=== PATIENT | female | born 1940 | race Hispanic/Latino ===

== ENCOUNTER 2017-09-20 05:58 | Day surgery (SDC) | payer MEDICARE, MEDICAID ==
[2017-09-19 13:28] VITALS: BMI 35.1
[2017-09-20 06:44] LABS: PTT 36.8 SEC (22.9-36.1); Prothrombin Time 14.8 SEC (12.0-14.7)
[2017-09-20 06:53] LABS: #Eosinphils 0.2 thou/uL (0.0-0.7); #Lymphocytes 1.2 thou/uL (1.20-3.40); #Monocytes 0.9 thou/uL (0.11-0.59); #Neutrophils 7.7 thou/uL (1.40-6.50); %Basophils 0.1 % (0.0-1.0); %Eosinophils 2.2 % (0.0-10.0); %Lymphocytes 11.8 % (21.0-51.0); %Monocytes 8.8 % (0.0-10.0); Hematocrit 29.3 % (36.0-47.0); Hypochromia SLIGHT = 6-15 cells (100X) (0-5/hpf); Mean Platelet Volume 6.9 fL (7.4-10.4); Microcytosis MODERATE=15-30 cells (100X) (0-5/hpf); Ovalocytes SLIGHT = 2-5 cells (100X) (0-1/hpf); Red Blood Cell (RBC) Count 3.99 mill/uL (4.20-5.40)
[2017-09-20 07:07] LABS: ALT (SGPT) 10 U/L (8-55); AST (SGOT) 9 U/L (5-34); Alkaline Phosphatase 94 U/L (40-150); Anion Gap 12 mmol/L (10-20); BUN (Urea Nitrogen) 7 mg/dL (9.8-20.1); Bilirubin, Total 0.4 mg/dL (0.2-1.2); Calc. Creatinine Clearance 87 mL/min (70-130); Carbon Dioxide 27 mmol/L (23-31); Chloride 101 mmol/L (98-107); Cholesterol 101 mg/dl (< 200 Desired); Estimated GFR-MDRD 78; Globulin 4.1 g/dL (2.4-3.5); LDL Cholesterol, Calculated 58 mg/dL; Protein, Total 7.1 g/dL (6.0-8.3)
[2017-09-20] MEDS ORDERED: Heparin 1000 UNIT/NS 500ML(OR) 500 ML ONE ×3 (07:33→08:38)
[2017-09-20] MEDS ORDERED: hydrALAZINE 20 MG/ML VIAL ONE (08:38)
[2017-09-20] MEDS ORDERED: Heparin 10,000 UNITS/1 ML VIAL ONE (09:18)
[2017-09-20] MEDS ORDERED: Protamine Sulfate 50 MG/5 ML VIAL ONE (09:21)
[2017-09-20] MEDS ORDERED: Iopamidol 370 76% 100 ML VIAL ONE (14:23)
--- NOTE | 2017-09-20 14:30 | CON ---
DATE OF CONSULTATION: 09/20/2017 HISTORY OF PRESENT ILLNESS: Ms. Nagy is a 77-year-old woman, who was brought in for elective cardi ac catheterization. She has been diagnosed with aortic stenosis with a valve area of 0.76. She was brought in for catheterization for coronary evaluation prior to aortic valve replacement. The patient states that she has no chest pain or shortness of breath at home. She performs all activ ities at home that she needs to do including cutting her grass. She has no cough. She has no hemopt ysis. She has had no rhythm disturbances. Currently, she is resting comfortably in the post-cath ar ea with no complaints. Cardiac catheterization reveals a severe LAD and circumflex stenosis with a bypassable LAD target and a bypassable OM target. PAST MEDICAL HISTORY: 1. Coronary artery disease. 2. Aortic stenosis. 3. Diabetes mellitus. 4. Hypertension. 5. Dyslipidemia. PAST SURGICAL HISTORY: None. CURRENT MEDICATIONS: 1. Aspirin 81 mg every day. 2. Tramadol 50 mg p.o. p.r.n. 3. Lyrica 50 mg every daily. 4. Amlodipine 10 mg every daily. 5. Glipizide 10 mg b.i.d. 6. Metformin 1000 mg b.i.d. 7. Coreg 12.5 mg b.i.d. 8. Digoxin 0.125 mg every day. 9. Actonel 35 mg. 10. Sulindac 150 mg daily. ALLERGIES: None. SOCIAL HISTORY: She does not use tobacco or alcohol. Her daughters are present for our discussion. REVIEW OF SYSTEMS: Ten-point review of systems is performed and is negative except as above. PHYSICAL EXAMINATION: GENERAL: Well-developed, well-nourished woman, in no acute distress. VITAL SIGNS: Heart rate is 100 and blood pressure is 110/72. HEENT: Sclerae nonicteric. Pupils equal and round bilaterally. NECK: Supple. No carotid bruits. CHEST: Clear to auscultation bilaterally. HEART: Rhythm is regular. She has a severe aortic stenosis murmur heard throughout her precordium. ABDOMEN: Soft and nontender. There are no masses. EXTREMITIES: No edema. VASCULAR: She has palpable carotid, radial, femoral, and dorsalis pedis pulses bilaterally. VENOUS: There are no venous varicosities or venous stasis changes. ASSESSMENT AND PLAN: Severe aortic stenosis with a valve area of 0.76 on echocardiogram and 0.87 on ventriculogram. She also has 2-vessel coronary artery disease. I have discussed coronary artery byp ass grafting utilizing left internal mammary artery to left anterior descending and saphenous vein gr aft to obtuse marginal along with aortic valve replacement utilizing a bioprosthetic valve. She is a greeable to proceed. Risks, benefits, and options have been outlined. We will bring her back in on Tuesday for surgical intervention.
[2017-09-20] MEDS ORDERED: Insulin Regular 300 UNITS/3 ML VIAL ONE (16:49)
[2017-09-20] MEDS ORDERED: Insulin Regular 300 UNITS/3 ML VIAL SC PRN (17:03)
[2017-09-20] MEDS ORDERED: Dextrose 5% in Water 1,000 ML IV PRN (17:03)
[2017-09-20] MEDS ORDERED: Dextrose 50% Abboject 50 ML SYRINGE IVP PRN (17:03)
--- NOTE | 2017-09-20 19:34 | RAD ---
EXAM: ONE VIEW CHEST 09/20/17 HISTORY: Preoperative exam. COMPARISON: None. FINDINGS: Normal cardiac silhouette. The pulmonary vessels are within normal limits. The lung volumes are dimin ished. Patchy interstitial opacities which are presumed to be chronic change. Right lower lobe atelec tasis is suspected. No significant pleural effusion. No pneumothorax. IMPRESSION: 1. Diminished lung volumes. 2. Chronic changes. 3. Right lower lobe atelectasis. POS: [facility]
== END 2017-09-20 18:19 | disposition home or self-care (01) ==
LOC: CCL 05:58
PROVIDERS: ATTEND Internal Medicine Cardiovascular Disease
DX: I35.0 Nonrheumatic aortic (valve) stenosis (principal); E11.9 Type 2 diabetes mellitus without complications; I25.10 Atherosclerotic heart disease of native coronary artery without angina pectoris; I10 Essential (primary) hypertension; E78.5 Hyperlipidemia, unspecified; Z79.82 Long term (current) use of aspirin; Z79.84 Long term (current) use of oral hypoglycemic drugs; Z79.899 Other long term (current) drug therapy
CPT/HCPCS: 71010; 80053; 80061; 82810; 82962; 85025; 85347 ×2; 85610; 85730; 93460; 93561; 93798; C1769; 36415; 36416; J0360; J1644; J1815; J2720

== ENCOUNTER 2017-09-26 13:05 | Outpatient (CLI) | payer MEDICARE, MEDICAID | END 2017-09-26 13:06 | disposition home or self-care (01) | LOC: LABBT 13:05 | PROVIDERS: ATTEND Thoracic Surgery (Cardiothoracic Vascular Surgery) | DX: Z01.818 Encounter for other preprocedural examination (principal); I35.0 Nonrheumatic aortic (valve) stenosis | CPT/HCPCS: 86850; 86900; 86901 ==

== ENCOUNTER 2017-09-26 13:15 | Inpatient (IN) | payer MEDICARE, MEDICAID ==
[2017-09-27] MEDS ORDERED: Glycopyrrolate 0.2 MG/ML 5 ML SYRINGE ONE (07:09)
[2017-09-27] MEDS ORDERED: Heparin 10,000 UNITS/1 ML VIAL 30,000 UNITS in Sodium Chloride 0.9% 1,000 ML FS SCH (07:15)
[2017-09-27] MEDS ORDERED: CEFAZOLIN/Water 2 GM/20 ML SYRINGE ONE (07:44)
[2017-09-27] MEDS ORDERED: Midazolam HCl 2 mg/2 ml Vial ONE (08:24)
[2017-09-27] MEDS ORDERED: Fentanyl 250 MCG/5 ML VIAL ONE (08:58)
[2017-09-27] MEDS ORDERED: Vecuronium 10 MG VIAL ONE ×2 (08:59→15:59)
[2017-09-27] MEDS ORDERED: Dexmedetomidine 200 MCG/2 ML VIAL ONE (08:59)
[2017-09-27] MEDS ORDERED: Midazolam HCl 5 mg/5 ml Vial ONE (08:59)
[2017-09-27] MEDS ORDERED: Norepinephrine 8 MG/0.9% NS 250 ML ONE (09:01)
[2017-09-27] MEDS ORDERED: Insulin Regular 300 UNITS/3 ML VIAL ONE (09:50)
--- NOTE | 2017-09-27 13:27 | OP ---
DATE OF OPERATION: 09/27/2017 PREOPERATIVE DIAGNOSES: Aortic stenosis/coronary artery disease/diabetes mellitus/hypertension /hyperlipidemia. POSTOPERATIVE DIAGNOSES: Aortic stenosis/coronary artery disease/diabetes mellitus/hypertension /hyperlipidemia. PROCEDURE: Coronary artery bypass grafting x2 -- 1. Left internal mammary artery to 2.5 mm LAD -- good conduit and target. 2. Reversed saphenous vein to 2.5 mm OM1 -- good conduit and target. Aortic valve replacement with #23 Magna bioprosthetic valve. SURGEON: Dr. George Bernardo and Dr. Indra Sarmiento. ANESTHESIA: General endotracheal -- Dr. Mack Enciso. PUMP TIME: 83 minutes. CROSS-CLAMP TIME: 58 minutes. LOW CORE TEMPERATURE: 32 degrees Celsius. CONTROL AND RECOVERY COMBAT RESCUE: Alisia Yusuf. DRAINS: 24-[place] chest tubes x3. DRIPS: None. TRANSFUSIONS: Two units packed red blood cells for anemia on pump. PROCEDURE IN DETAIL: After consent was obtained, the patient was brought to the operating room and placed in the supine position on the operating room table. Appropriate anesthetic monitor was placed and general endotracheal anesthesia induced. Chest, abdomen, and legs were prepped and draped in usual sterile fashion. Greater saphenous vein was harvested through skip incisions on the left thigh. Wounds were irrigated and closed in layers. Median sternotomy was performed. Left internal mammary artery was harvested as a pedicle graft. The patient was systemically heparinized. Distal pedicle was divided and infused with papaverine. Thymic fat and pericardium were divided with electrocautery. Pericardial stay sutures were placed. Aortic and atrial cannulation was performed. After adequate heparinization, retrograde prime was performed. The patient was placed on cardiopulmonary bypass. Distal targets were marked. Left ventricular sump drain was placed to the right superior pulmonary vein. Aortic cross-clamp was applied and antegrade sanguinous cardioplegic arrest obtained. One liter of antegrade cold [place] cardioplegia was given. Topical cold solution was used. Reversed saphenous vein was anastomosed to the OM in end-to-side fashion with running 7-0 Prolene suture. Anastomosis was tested and was hemostatic. Mammary artery was brought through a window in the pericardium and anastomosed to the LAD in end-to-side fashion with running 7-0 Prolene suture. On release of the mammary clamp, there was good hooding in the anastomosis and good distal flow. The mammary was reclamped. The pedicle was secured with interrupted 6-0 Prolene suture. CO2 was infused in the pericardial well throughout the open aortic portion of the procedure. Transverse aortotomy was performed and it was hockey stick down toward the noncoronary cusp. 4-0 Prolene aortic stay sutures were placed. Aortic valve was inspected. It was a 3-leaflet valve that was heavily calcified at the annular hinge points. Leaflets were debrided and valve annulus decalcified. 2-0 Ethibond pledgeted sutures were placed in each commissure. Valve was measured and it was a 23 Magna valve. The valve was then brought into the operative field and washed. Pledgetted 2-0 Ethibond sutures placed around the annulus. Sutures were then passed through the sewing ring of the valve and valve was seated. Core knots were used to secure the valve in place. The valve seated nicely. Aortotomy was then closed with pledgetted running dual layer 4-0 Prolene suture. Prior to completion of the suture line, ventilation was performed and de-airing maneuvers were performed. Suture line was then tied. The aortic cross-clamp was removed with the patient in Trendelenburg position. BioGlue was placed on the aortic suture line. Partial occluding clamp was removed. Saphenous vein was anastomosed to the aorta with running 6-0 Prolene suture. Partial occluding clamp was removed and graft deaired. After adequate deairing via PATRICIA, the left ventricular sump drain was removed and its pursestring sutures secured. The patient was warmed and weaned from cardiopulmonary bypass. Ventricular pacing wires were placed, but never used. After resumption of sinus rhythm, good hemodynamics, and the temperature greater than 36.5, bypass was discontinued. Transfusions were given. A 24-[place] chest tubes x3 were placed in the mediastinum. Vancomycin paste was placed on the sternal edges. After decannulation and protamine administration had been performed, hemostasis was ensured. Sternum was closed with #5 wire. Sternum was treated with platelet-rich plasma and wires twisted. Wounds were irrigated, treated with platelet-poor plasma and closed in multiple layers. The patient tolerated the procedure well, and was transferred to the intensive care unit in stable, but critical condition. [facility]
[2017-09-27] MEDS ORDERED: Bisacodyl 5 MG TAB PO PRN (13:45)
[2017-09-27] MEDS ORDERED: Bisacodyl 10 MG SUPP PR PRN (13:45)
[2017-09-27] MEDS ORDERED: Nitroglycerin 50 MG/250 ML BOT 250 ML IVPB PRN (13:45)
[2017-09-27] MEDS ORDERED: Acetaminophen 325 MG TAB PO PRN (13:45)
[2017-09-27] MEDS ORDERED: Post-Op Insulin Drip Protocol IVPB ONE (13:45)
[2017-09-27] MEDS ORDERED: D5 1/2 NS w/20 mEq KCL 1,000 ML IV SCH (13:45)
[2017-09-27] MEDS ORDERED: Hetastarch 6% 500 ML 500 ML IVPB PRN (13:45)
[2017-09-27] MEDS ORDERED: Guaifenesin DM 100-10/5 ML UDCUP PO PRN (13:45)
[2017-09-27] MEDS ORDERED: Norepinephrine 8 MG/0.9% NS 250 ML IVPB PRN (13:45)
[2017-09-27] MEDS ORDERED: Mag-Al 1200 mg/1200 mg/30 ML UDCUP PO PRN (13:45)
[2017-09-27] MEDS ORDERED: Fentanyl 100 MCG/2 ML VIAL SLOW IVP PRN ×2 (13:45)
[2017-09-27] MEDS ORDERED: Ondansetron HCl/PF 4 MG/2 ML Vial IVP PRN (13:45)
[2017-09-27] MEDS ORDERED: Nitroglycerin 50 MG/250 ML BOT 250 ML ONE (13:51)
[2017-09-27 13:53] LABS: #Eosinphils 0.3 thou/uL (0.0-0.7); #Lymphocytes 1.6 thou/uL (1.20-3.40); #Monocytes 1.2 thou/uL (0.11-0.59); #Neutrophils 14.5 thou/uL (1.40-6.50); %Eosinophils 1.5 % (0.0-10.0); %Monocytes 6.8 % (0.0-10.0); Hematocrit 30.8 % (36.0-47.0); Mean Platelet Volume 7.3 fL (7.4-10.4); Red Blood Cell (RBC) Count 3.91 mill/uL (4.20-5.40); White Blood Cell (WBC) Count 17.5 thou/uL (4.8-10.8)
[2017-09-27] MEDS ORDERED: Dextrose 50% Abboject 50 ML SYRINGE SLOW IVP PRN (13:54)
[2017-09-27] MEDS ORDERED: Dextrose 5% in Water 1,000 ML IV PRN (13:54)
[2017-09-27 13:57] LABS: Mechanical Tidal Volume 500 ml; Mode SIMV; Pressure Support 10 cmH2O; Sodium 141 mmol/L (135-148); Vent YES
[2017-09-27 14:03] LABS: PTT 36.4 SEC (22.9-36.1); Prothrombin Time 16.6 SEC (12.0-14.7)
[2017-09-27] MEDS ORDERED: Morphine 2 MG/ML SYRINGE SLOW IVP PRN (14:03)
--- NOTE | 2017-09-27 14:06 | RAD ---
SUPINE PORTABLE CHEST ONE VIEW: History: 77-year-old female status post coronary artery bypass graft. FINDINGS: There is considerable rotation to the left. Endotracheal tube and right central line and chest tubes are in place. There is some patchy bilateral vascular congestion with some minimal alveolar parenchy mal changes in the right upper lobe and some pleural and parenchymal opacity changes in both bases, w orse on the left, evidence for post-operative change. Aortic valve replacement changes. IMPRESSION: Recent post underlying sternotomy and aortic valve replacement changes with some bilateral vascular c ongestion and some minimal interstitial and alveolar opacity changes and small pleural effusions bila terally, probably recent post-operative change. No pneumothorax. Continued short term follow. Endotra cheal tube tip is approximately 1 cm above the level of the yaritza. No pneumothorax. Continued short term follow up. POS: [facility]
[2017-09-27 14:14] LABS: Anion Gap 5 mmol/L (10-20); BUN (Urea Nitrogen) 7 mg/dL (9.8-20.1); Calc. Creatinine Clearance 108 mL/min (70-130); Calcium 9.6 mg/dL (7.8-10.44); Carbon Dioxide 27 mmol/L (23-31); Chloride 111 mmol/L (98-107); Estimated GFR-MDRD Greater than 90
[2017-09-27] MEDS: hydrALAZINE 20 MG/ML VIAL SLOW IVP PRN (15:10)
[2017-09-27] MEDS ORDERED: Lidocaine 1% PF 5 ML VIAL ONE (15:59)
[2017-09-27] MEDS ORDERED: Heparin 30,000 units/30 ml VIAL ONE (15:59)
[2017-09-27] MEDS ORDERED: Aminocaproic Acid 5 GM/20 ML VIAL ONE (15:59)
[2017-09-27] MEDS ORDERED: Propofol 200 MG/20 ML VIAL ONE (15:59)
[2017-09-27] MEDS ORDERED: Protamine Sulfate 250 MG/25 ML VIAL ONE (15:59)
[2017-09-27] MEDS: CEFAZOLIN/Water 2 GM/20 ML SYRINGE SLOW IVP SCH (16:10)
[2017-09-27 16:21] LABS: Oxyhemoglobin 93.1 % (94.0-97.0); Sodium 141 mmol/L (135-148)
[2017-09-27] MEDS: Ketorolac Tromethamine 30 MG/ML VIAL IVP SCH ×2 (16:39→23:45)
[2017-09-27 16:41] LABS: Pressure Support 10 cmH2O; Spontaneous Rate 21 min; Vent YES
[2017-09-27] MEDS: HYDROcodone/Acetaminophen 5/325 mg Tablet PO PRN ×2 (16:41→21:39)
[2017-09-27 16:42] LABS: Mode CPAP/PSV
[2017-09-27 17:15] VITALS: BMI 35.9
[2017-09-27] MEDS: Potassium Chloride 20 MEQ/100 ML PREMIX BAG IVPB PRN (17:21)
[2017-09-27 19:09] LABS: Hematocrit 30.5 % (36.0-47.0)
[2017-09-27] MEDS: Vancomycin HCl 1 GM in Premix Bag 1 BAG IVPB SCH (20:12)
[2017-09-27] MEDS ORDERED: Famotidine/PF 20 mg/2ml Vial SLOW IVP SCH (21:00)
[2017-09-28] MEDS: CEFAZOLIN/Water 2 GM/20 ML SYRINGE SLOW IVP SCH ×2 (00:59→08:31)
[2017-09-28] MEDS: HYDROcodone/Acetaminophen 5/325 mg Tablet PO PRN ×5 (03:38→22:19)
[2017-09-28] MEDS: hydrALAZINE 20 MG/ML VIAL SLOW IVP PRN (04:41)
[2017-09-28 04:55] LABS: #Lymphocytes 1.5 thou/uL (1.20-3.40); #Monocytes 1.4 thou/uL (0.11-0.59); #Neutrophils 11.4 thou/uL (1.40-6.50); %Basophils 0.1 % (0.0-1.0); %Eosinophils 0.3 % (0.0-10.0); %Lymphocytes 10.1 % (21.0-51.0); %Monocytes 9.7 % (0.0-10.0); Hematocrit 30.8 % (36.0-47.0); Mean Platelet Volume 7.6 fL (7.4-10.4); Red Blood Cell (RBC) Count 3.99 mill/uL (4.20-5.40); White Blood Cell (WBC) Count 14.3 thou/uL (4.8-10.8)
[2017-09-28 05:27] LABS: Anion Gap 10 mmol/L (10-20); BUN (Urea Nitrogen) 9 mg/dL (9.8-20.1); Calc. Creatinine Clearance 98 mL/min (70-130); Calcium 9.7 mg/dL (7.8-10.44); Carbon Dioxide 24 mmol/L (23-31); Chloride 107 mmol/L (98-107); Estimated GFR-MDRD 90
[2017-09-28] MEDS: Ketorolac Tromethamine 30 MG/ML VIAL IVP SCH ×3 (06:00→17:32)
[2017-09-28] MEDS ORDERED: Furosemide 20 MG/2 ML VIAL SLOW IVP SCH (07:45)
[2017-09-28] MEDS: Vancomycin HCl 1 GM in Premix Bag 1 BAG IVPB SCH (08:31)
[2017-09-28] MEDS: Aspirin 325 MG TAB PO SCH (08:32)
[2017-09-28] MEDS: Famotidine 20 MG TAB PO SCH ×2 (08:32→20:35)
[2017-09-28] MEDS ORDERED: Non-Formulary Item 1 EACH (Metformin Hcl [Metformin Hcl] 1,000 MG) PO SCH (09:00)
[2017-09-28] MEDS ORDERED: Non-Formulary Item 1 EACH (Carvedilol [Carvedilol] 12.5 MG) PO SCH (09:00)
[2017-09-28] MEDS ORDERED: INSULIN ASPART 5 UNIT SQ SCH (09:00)
[2017-09-28] MEDS: Amlodipine 10 MG TAB PO SCH (09:03)
[2017-09-28] MEDS: Carvedilol 6.25 MG TAB PO SCH (09:04)
[2017-09-28] MEDS: Digoxin 0.125 MG TAB PO SCH (09:05)
[2017-09-28] MEDS: HumaLOG 300 UNITS/3 ML VIAL SC SCH ×3 (09:05→17:31)
[2017-09-28] MEDS: metFORMIN 500 MG TAB PO SCH ×2 (09:06→20:35)
--- NOTE | 2017-09-28 09:06 | RAD ---
SINGLE VIEW OF THE CHEST: Comparison: 09-27-17 History: Status post open heart surgery. FINDINGS: Single view of the chest shows an enlarged but stable cardiomediastinal silhouette. The patient is st atus post sternotomy. The endotracheal tube has been removed. The mediastinal drain and chest tubes a re unchanged in position. The central venous catheter is unchanged in position. There appear to be sm all bilateral pleural effusions. IMPRESSION: 1. Cardiomegaly. 2. Small bilateral pleural effusions. POS: [facility]
[2017-09-28] MEDS: Potassium Chloride 20 MEQ/100 ML PREMIX BAG IVPB PRN (09:07)
--- NOTE | 2017-09-28 11:11 | PDOC.CTH ---
<Ellen Morin - Last Filed: 09/28/17 11:08> Cardiology Progress Note - Subjective The pt seen and examined. No overnight events. No cardiac complaints. She has been up to chair today. - Objective Vital Signs Temp Pulse BP Pulse Ox 09/28/17 09:05 103 H 09/28/17 09:04 131/58 L 09/28/17 09:03 103 H 131/58 L 09/28/17 08:00 98.6 F 09/28/17 04:41 101 H 142/64 H 09/28/17 04:17 92 L 09/28/17 00:00 99.7 F H Admit Weight 182 lb 15.739 oz Weight 188 lb 7.924 oz 09/27/17 09/28/17 09/29/17 06:59 06:59 06:59 Intake Total 1128.4 695 Output Total 1304 270 Balance -175.6 425 - Physical Examination General/Neuro: alert & oriented x3 Neck: no JVD present Lungs: CTA (diminished at bases) Heart: RRR Abdomen: soft, other: Extremities: other: (No edemas; MSI AVTAR) - Telemetry Telemetry Rhythm: SR 80s - Labs Result Diagrams: 09/28/17 04:17 09/28/17 04:17 - Assessment/Plan 1. CAD with S/p CABG x2, MEDRANO-LAD and reversed saph-OM1 on 09/27/17 - Stable; on ASA and BBlocker, cont. monitor on tele 2. Severe with s/p AVR with #23 Magna Bioprosthetic valve on 09/27/17 - cont. monitor 3. HTN - stable with current medication 4. DM type 2 - on ACHS BG check with Insulin SS and PO med 5. hyperlipidemia - start Lipitor 10mg daily MAR reviewed Review of Systems - Review of Systems Constitutional: reports: no symptoms reported EENTM: reports: no symptoms reported Respiratory: reports: no symptoms reported Cardiac (ROS): reports: no symptoms reported ABD/GI: reports: no symptoms reported : reports: no symptoms reported Musculoskeletal: reports: no symptoms reported Skin: reports: no symptoms reported <Marty Avila - Last Filed: 09/28/17 17:51> Cardiology Progress Note - Objective Vital Signs Temp Pulse Resp BP Pulse Ox 09/28/17 16:00 98.3 F 09/28/17 13:24 93 L 09/28/17 12:00 97.7 F 97 09/28/17 09:05 103 H 09/28/17 09:04 131/58 L 09/28/17 09:03 103 H 131/58 L 09/28/17 08:00 98.6 F 103 H 24 H 95 Admit Weight 182 lb 15.739 oz Weight 188 lb 7.924 oz 09/27/17 09/28/17 09/29/17 06:59 06:59 06:59 Intake Total 1128.4 1264 Output Total 1304 270 Balance -175.6 994 - Labs Result Diagrams: 09/28/17 04:17 09/28/17 04:17 - Assessment/Plan pt. seen and eval. by me. I agree with the A/P by rthe FREIGHT BRAKE OPERATOR. She is doing very well postop day 1. Sitting on the side of the bed.Chest clear, RRR.
[2017-09-28] MEDS ORDERED: HumaLOG 300 UNITS/3 ML VIAL SC SCH (11:30)
[2017-09-28] MEDS: Insulin Regular 300 UNITS/3 ML VIAL SC PRN ×3 (11:37→21:16)
[2017-09-28] MEDS: Atorvastatin Calcium 10 MG TAB PO SCH (20:35)
[2017-09-28] MEDS: Pregabalin 50 MG CAP PO SCH (20:35)
[2017-09-29] MEDS: Ketorolac Tromethamine 30 MG/ML VIAL IVP SCH ×4 (05:30→17:17)
[2017-09-29 05:46] LABS: #Eosinphils 0.2 thou/uL (0.0-0.7); #Lymphocytes 1.5 thou/uL (1.20-3.40); #Monocytes 1.3 thou/uL (0.11-0.59); #Neutrophils 12.5 thou/uL (1.40-6.50); %Basophils 0.1 % (0.0-1.0); %Eosinophils 1.1 % (0.0-10.0); %Lymphocytes 9.8 % (21.0-51.0); %Monocytes 8.6 % (0.0-10.0); Hematocrit 30.2 % (36.0-47.0); Mean Platelet Volume 7.9 fL (7.4-10.4); Red Blood Cell (RBC) Count 3.88 mill/uL (4.20-5.40); White Blood Cell (WBC) Count 15.5 thou/uL (4.8-10.8)
[2017-09-29 06:00] LABS: Anion Gap 9 mmol/L (10-20); BUN (Urea Nitrogen) 19 mg/dL (9.8-20.1); Calc. Creatinine Clearance 82 mL/min (70-130); Calcium 9.7 mg/dL (7.8-10.44); Carbon Dioxide 25 mmol/L (23-31); Chloride 104 mmol/L (98-107); Estimated GFR-MDRD 73
[2017-09-29] MEDS: Insulin Regular 300 UNITS/3 ML VIAL SC PRN ×2 (06:49→12:18)
[2017-09-29] MEDS ORDERED: Guaifenesin DM 100-10/5 ML UDCUP PO PRN (06:53)
[2017-09-29] MEDS ORDERED: Nitroglycerin 0.4 MG TAB 1 EACH SL PRN (06:53)
[2017-09-29] MEDS ORDERED: Mag-Al 1200 mg/1200 mg/30 ML UDCUP PO PRN (06:53)
[2017-09-29] MEDS ORDERED: Bisacodyl 5 MG TAB PO PRN (06:53)
[2017-09-29] MEDS ORDERED: Bisacodyl 10 MG SUPP PR PRN (06:53)
[2017-09-29] MEDS ORDERED: Zolpidem Tartrate 5 MG TAB PO PRN (06:53)
[2017-09-29] MEDS ORDERED: Mineral Oil ENEMA PR PRN (06:53)
[2017-09-29] MEDS ORDERED: Milk Of Magnesia 30 ML UDCUP PO PRN (06:53)
[2017-09-29] MEDS ORDERED: Artificial Tears 18 DROP/0.9 ML EA EYE PRN (06:53)
[2017-09-29] MEDS ORDERED: diphenhydrAMINE 25 MG CAP PO PRN (06:53)
[2017-09-29] MEDS: HumaLOG 300 UNITS/3 ML VIAL SC SCH ×3 (07:28→17:18)
[2017-09-29] MEDS: metFORMIN 500 MG TAB PO SCH ×2 (07:59→20:25)
[2017-09-29] MEDS: Famotidine 20 MG TAB PO SCH ×2 (08:00→20:25)
[2017-09-29] MEDS: Digoxin 0.125 MG TAB PO SCH (08:03)
[2017-09-29] MEDS: Carvedilol 6.25 MG TAB PO SCH (08:03)
[2017-09-29] MEDS: Aspirin 325 MG TAB PO SCH (08:04)
[2017-09-29] MEDS: Amlodipine 10 MG TAB PO SCH (08:04)
--- NOTE | 2017-09-29 08:18 | RAD ---
PORTABLE AP CHEST XRAY: DATE: 09/29/17. HISTORY: Post open heart surgery. COMPARISON: 09/28/17. FINDINGS: Right subclavian central venous catheter remains in place and unchanged in position. Postsurgical ch anges related to median sternotomy and cardiac valve replacement are noted. The cardiac silhouette i s magnified by projection. Linear parenchymal changes are seen at each lung base also seen on the pr ior study and do appear mildly improved. Findings may be related to improvement in atelectasis. The re is a suggestion of tiny bilateral pleural effusions. No other interval change. IMPRESSION: Mild improvement in atelectasis at each lung base, but small bilateral pleural effusions persist. No other interval change. POS: [facility]
[2017-09-29] MEDS ORDERED: Furosemide 20 MG TAB PO SCH (09:00)
[2017-09-29] MEDS: HYDROcodone/Acetaminophen 5/325 mg Tablet PO PRN ×2 (10:42→20:25)
--- NOTE | 2017-09-29 10:56 | CON ---
DATE OF SERVICE: 09/29/2017 SERVICE: Pulmonary Medicine. REASON FOR CONSULTATION: ICU patient. HISTORY OF PRESENT ILLNESS: The patient is a very pleasant 77-year-old female with past med ical history significant for coronary artery disease. She presented to the hospital for an elective outpatient coronary artery bypass graft. This was performed on 09/27/2017. Ultimately, she required a coronary bypass graft x2 separate vessels. The postop period was uncomplicated. She has already been weaned off of oxygen. Chest tubes have been removed. She denies any current chest pain, shortn ess of breath, fevers, or chills. She has not required any pain medications since yesterday. She is breathing comfortably and able cough fully. She is actually being transitioned to the floor at some point today as soon as the room becomes available. Otherwise, there have been no specific events th at have occurred. PAST MEDICAL HISTORY: 1. Type 2 diabetes mellitus. 2. Hypertension. 3. Dyslipidemia. 4. Coronary artery disease. 5. Osteoporosis. 6. Peripheral vascular disease. PAST SURGICAL HISTORY: Coronary bypass graft. ALLERGIES: No known drug allergies. MEDICATIONS: List of her inpatient medications was reviewed. No specific updates were made at this time. SOCIAL HISTORY: No history of alcohol, tobacco or illicit drug use. She has no exposure to chemical s, dust, asbestosis, or tuberculosis at this time. FAMILY HISTORY: Noncontributory. REVIEW OF SYSTEMS: General, head, ears, eyes, nose, throat, cardiovascular, respiratory, GI, , mus culoskeletal, neurologic and skin is negative except as mentioned in the HPI. PHYSICAL EXAMINATION: VITAL SIGNS: Afebrile, pulse 96, blood pressure 126/54, respirations 68, saturation 97% on room air. GENERAL: Patient is awake and alert, in no apparent distress. LUNGS: Excellent air entry. Dependent crackles are present. HEART: Normal rate, regular. ABDOMEN: Soft, nontender, nondistended, bowel sounds positive. MUSCULOSKELETAL: No cyanosis or clubbing. There is trace pitting in the bilateral lower extremities . GENITOURINARY: Padgett catheter in place. NEUROLOGIC: Grossly nonfocal. LABORATORY DATA: WBC 15.5, hemoglobin 9.2, platelets 344,000. Basic metabolic profile is otherwise unremarkable. INR 1.3. PH 7.47, pCO2 of 32, pO2 60 on 40% FiO2 at the time. Basic metabolic profil e is completely unremarkable except for sodium of 134, previously normal. IMAGING: Chest x-ray demonstrates improvement in atelectasis in the bibasilar region. Small bilater al pleural effusions are evident. Low lung volumes remained. There is a right subclavian central ve nous catheter in good position and evidence of sternotomy. ASSESSMENT: 1. Acute hypoxic respiratory failure, resolved. 2. Coronary artery disease status post coronary bypass graft x2 vessels, postop day #1. 3. Aortic stenosis, severe, status post aortic valve replacement. PLAN: The patient will remain in the ICU until cleared by surgery. When she goes to the floor, she will have no further requirements for inpatient pulmonary or critical care opinion and I will sign of f. Please call with additional questions or concerns moving forward.
[2017-09-29] MEDS ORDERED: Amiodarone HCl 150 MG, Admixture Fee 1 EACH in Dextrose 5% in Water 100 ML IVPB SCH ×3 (15:30)
[2017-09-29 16:51] LABS: ALT (SGPT) Less than 7 U/L (8-55); AST (SGOT) 13 U/L (5-34); Alkaline Phosphatase 93 U/L (40-150); Bilirubin, Direct 0.2 mg/dL (0.1-0.3); Bilirubin, Total 0.3 mg/dL (0.2-1.2); Magnesium 1.8 mg/dL (1.6-2.6); Protein, Total 6.1 g/dL (6.0-8.3)
--- NOTE | 2017-09-29 17:03 | PDOC.CTH ---
<Ellen Morin - Last Filed: 09/29/17 17:00> Cardiology Progress Note - Objective Vital Signs Temp Pulse Pulse Pulse Resp BP BP 09/29/17 14:12 81 81 131/59 L 09/29/17 12:08 98.6 F 88 17 09/29/17 11:51 90 76 98/55 L 09/29/17 09:00 98.1 F 86 18 09/29/17 08:04 96 126/54 L 09/29/17 08:03 98 126/54 L 09/29/17 08:00 98.3 F 98 24 H 09/29/17 07:11 98.3 F 96 27 H 09/29/17 07:00 98.3 F BP BP BP Pulse Ox Pulse Ox Pulse Ox 09/29/17 14:12 95/51 L 93 L 92 L 09/29/17 12:08 115/59 L 91 L 09/29/17 11:51 106/62 93 L 92 L 09/29/17 09:00 116/60 91 L 09/29/17 08:04 09/29/17 08:03 09/29/17 08:00 126/54 L 94 L 09/29/17 07:11 94 L 09/29/17 07:00 Admit Weight 182 lb 15.739 oz Weight 184 lb 11.958 oz 09/28/17 09/29/17 09/30/17 06:59 06:59 06:59 Intake Total 1128.4 1944 120 Output Total 1304 630 0 Balance -175.6 1314 120 - Labs Result Diagrams: 09/29/17 05:26 09/29/17 05:26 - Assessment/Plan 1. CAD with S/p CABG x2, MEDRANO-LAD and reversed saph-OM1 on 09/27/17 - Stable; on ASA and BBlocker, cont. monitor on tele 2. Post-Op Afib - rate well controlled. 3. Severe with s/p AVR with #23 Magna Bioprosthetic valve on 09/27/17 - cont. monitor 4. HTN - stable with current medication 5. DM type 2 - on ACHS BG check with Insulin SS and PO med 6. hyperlipidemia - start Lipitor 10mg daily MAR reviewed <Marty Avila - Last Filed: 09/29/17 19:00> Cardiology Progress Note - Objective Vital Signs Temp Pulse Pulse Pulse Resp BP BP 09/29/17 16:00 97.7 F 80 18 09/29/17 14:12 81 81 131/59 L 09/29/17 12:08 98.6 F 88 17 09/29/17 11:51 90 76 98/55 L 09/29/17 09:00 98.1 F 86 18 09/29/17 08:04 96 126/54 L 09/29/17 08:03 98 126/54 L 09/29/17 08:00 98.3 F 98 24 H 09/29/17 07:11 98.3 F 96 27 H 09/29/17 07:00 98.3 F BP BP BP Pulse Ox Pulse Ox Pulse Ox 09/29/17 16:00 123/57 L 96 09/29/17 14:12 95/51 L 93 L 92 L 09/29/17 12:08 115/59 L 91 L 09/29/17 11:51 106/62 93 L 92 L 09/29/17 09:00 116/60 91 L 09/29/17 08:04 09/29/17 08:03 09/29/17 08:00 126/54 L 94 L 09/29/17 07:11 94 L 09/29/17 07:00 Admit Weight 182 lb 15.739 oz Weight 184 lb 11.958 oz 09/28/17 09/29/17 09/30/17 06:59 06:59 06:59 Intake Total 1128.4 1944 600 Output Total 1304 630 800 Balance -175.6 1314 -200 - Labs Result Diagrams: 09/29/17 05:26 09/29/17 05:26 - Assessment/Plan Pt. seen and eval. by me. I agree with the A/P by the DORMITORY COUNSELOR. She converted to A- fib.. Will try to manage medically.
[2017-09-29] MEDS: Amiodarone HCl 450 MG in Dextrose 5% in Water 250 ML IVPB SCH ×2 (17:18)
[2017-09-29] MEDS: Pregabalin 50 MG CAP PO SCH (20:23)
[2017-09-29] MEDS: Atorvastatin Calcium 10 MG TAB PO SCH (20:24)
[2017-09-30] MEDS: Ketorolac Tromethamine 30 MG/ML VIAL IVP SCH ×4 (00:17→17:44)
[2017-09-30] MEDS: Amiodarone HCl 450 MG in Dextrose 5% in Water 250 ML IVPB SCH ×2 (07:03)
[2017-09-30] MEDS ORDERED: Metolazone 5 MG TAB PO SCH (08:15)
[2017-09-30] MEDS ORDERED: Furosemide 20 MG TAB PO SCH (08:15)
[2017-09-30] MEDS: Amlodipine 10 MG TAB PO SCH (09:06)
[2017-09-30] MEDS: Aspirin 325 MG TAB PO SCH (09:06)
[2017-09-30] MEDS: metFORMIN 500 MG TAB PO SCH ×2 (09:06→21:24)
[2017-09-30] MEDS: Digoxin 0.125 MG TAB PO SCH (09:06)
[2017-09-30] MEDS: Carvedilol 6.25 MG TAB PO SCH (09:07)
[2017-09-30] MEDS: Famotidine 20 MG TAB PO SCH ×2 (09:07→21:24)
[2017-09-30] MEDS: Furosemide 40 MG TAB PO SCH (09:07)
[2017-09-30] MEDS: HumaLOG 300 UNITS/3 ML VIAL SC SCH ×3 (09:08→17:47)
[2017-09-30 11:26] LABS: Base Excess 0.5 mEq/L (0 (+/- 2.5)); O2 Content (venous) 6.1 VOL% (12.5-17.5); Oxyhemoglobin 97.3 % (94.0-97.0); Sodium 140 mmol/L (135-148); pH (venous) 7.36 (7.35-7.45)
[2017-09-30 11:26] LABS: Oxyhemoglobin 97.4 % (94.0-97.0); Sodium 140 mmol/L (135-148)
[2017-09-30 11:27] LABS: Oxyhemoglobin 96.9 % (94.0-97.0); Sodium 142 mmol/L (135-148)
[2017-09-30 11:27] LABS: Oxyhemoglobin 94.8 % (94.0-97.0); Sodium 141 mmol/L (135-148)
[2017-09-30 11:27] LABS: Oxyhemoglobin 96.7 % (94.0-97.0); Sodium 141 mmol/L (135-148)
[2017-09-30] MEDS: Insulin Regular 300 UNITS/3 ML VIAL SC PRN ×2 (11:31→17:46)
--- NOTE | 2017-09-30 12:26 | PDOC.CTH ---
<MikelEllen - Last Filed: 09/30/17 12:25> Cardiology Progress Note - Subjective The pt seen and examined. No overnight events. No cardiac complaints. She has walked to the yoder today with PTs. - Objective Vital Signs Temp Pulse Resp BP BP Pulse Ox 09/30/17 12:00 97.6 F 77 17 126/61 93 L 09/30/17 09:07 151/69 H 09/30/17 09:06 93 151/69 H 09/30/17 08:00 97.8 F 94 18 150/67 H 94 L 09/30/17 07:31 97.8 F 97 23 H 94 L 09/30/17 06:10 92 L 09/30/17 04:00 97.8 F 97 23 H 132/66 91 L Admit Weight 182 lb 15.739 oz Weight 184 lb 09/29/17 09/30/17 10/01/17 06:59 06:59 06:59 Intake Total 3404 591 1883 Output Total 630 800 400 Balance 1314 -200 750 - Physical Examination General/Neuro: alert & oriented x3 Neck: no JVD present Lungs: CTA (diminished at bases; IS up to 1200) Heart: other: (irregular) Abdomen: soft Extremities: other: (No edemas; MSI PURCHASING ADMINISTRATOR) - Telemetry Telemetry Rhythm: afib with HR 70-80s - Labs Result Diagrams: 09/29/17 05:26 09/29/17 05:26 - Assessment/Plan 1. CAD with S/p CABG x2, MEDRANO-LAD and reversed saph-OM1 on 09/27/17 - Stable; on ASA and BBlocker, cont. monitor on tele 2. Post-Op Afib - rate well controlled with Amiodarone drip; Change to Amiodarone to 400mg BID for 1wk, then 200mg daily; Start Eliquis 5mg BID 3. Severe with s/p AVR with #23 Magna Bioprosthetic valve on 09/27/17 - cont. monitor 4. HTN - stable with current medication 5. DM type 2 - on ACHS BG check with Insulin SS and PO med 6. hyperlipidemia - start Lipitor 10mg daily MAR reviewed Review of Systems - Review of Systems Constitutional: reports: no symptoms reported EENTM: reports: no symptoms reported Respiratory: reports: no symptoms reported Cardiac (ROS): reports: no symptoms reported ABD/GI: reports: no symptoms reported : reports: no symptoms reported Musculoskeletal: reports: no symptoms reported <Marty Avila - Last Filed: 09/30/17 14:39> Cardiology Progress Note - Objective Vital Signs Temp Pulse Pulse Pulse Resp BP BP 09/30/17 13:19 76 77 133/58 L 09/30/17 12:00 97.6 F 77 17 09/30/17 09:07 151/69 H 09/30/17 09:06 93 151/69 H 09/30/17 08:51 85 80 151/69 H 09/30/17 08:00 97.8 F 94 18 09/30/17 07:31 97.8 F 97 23 H 09/30/17 06:10 09/30/17 04:00 97.8 F 97 23 H BP BP Pulse Ox Pulse Ox Pulse Ox 09/30/17 13:19 143/64 H 09/30/17 12:00 126/61 93 L 09/30/17 09:07 09/30/17 09:06 09/30/17 08:51 150/67 H 94 L 96 09/30/17 08:00 150/67 H 94 L 09/30/17 07:31 94 L 09/30/17 06:10 92 L 09/30/17 04:00 132/66 91 L Admit Weight 182 lb 15.739 oz Weight 184 lb 09/29/17 09/30/17 10/01/17 06:59 06:59 06:59 Intake Total 2023 064 7849 Output Total 630 800 400 Balance 1314 -200 870 - Labs Result Diagrams: 09/29/17 05:26 09/29/17 05:26 - Assessment/Plan Pt. seen and eval. by me. I agree with the A/P by the SCHOOL PHOTOGRAPH EDITOR. She remains in A- fib.. Will try to manage medically.She is now on po Amiodarone. HR and BP still on the high side. increase coreg.
[2017-09-30 16:24] LABS: Mode OR ABG; Vent YES
[2017-09-30 16:25] LABS: Mode OR ABG; Vent YES
[2017-09-30 16:25] LABS: Mode OR ABG; Vent YES
[2017-09-30 16:26] LABS: Mode OR ABG; Vent YES
[2017-09-30 16:26] LABS: Mode OR ABG; Vent YES
[2017-09-30] MEDS ORDERED: Carvedilol 6.25 MG TAB PO SCH (17:00)
[2017-09-30] MEDS: Carvedilol 25 MG TAB PO SCH (17:45)
[2017-09-30] MEDS: Apixaban 5 MG TAB PO SCH (21:24)
[2017-09-30] MEDS: Atorvastatin Calcium 10 MG TAB PO SCH (21:24)
[2017-09-30] MEDS: Pregabalin 50 MG CAP PO SCH (21:24)
[2017-09-30] MEDS: HYDROcodone/Acetaminophen 5/325 mg Tablet PO PRN (21:25)
[2017-10-01] MEDS: HYDROcodone/Acetaminophen 5/325 mg Tablet PO PRN ×3 (04:07→20:45)
[2017-10-01] MEDS: HumaLOG 300 UNITS/3 ML VIAL SC SCH ×3 (07:30→18:43)
[2017-10-01] MEDS: Famotidine 20 MG TAB PO SCH ×2 (11:22→20:43)
[2017-10-01] MEDS: Furosemide 40 MG TAB PO SCH (11:22)
[2017-10-01] MEDS: metFORMIN 500 MG TAB PO SCH ×2 (11:22→20:43)
[2017-10-01] MEDS: Carvedilol 25 MG TAB PO SCH ×2 (11:22→18:42)
[2017-10-01] MEDS: Digoxin 0.125 MG TAB PO SCH (11:23)
[2017-10-01] MEDS: Amlodipine 10 MG TAB PO SCH (11:24)
[2017-10-01] MEDS: Aspirin 325 MG TAB PO SCH (11:28)
[2017-10-01] MEDS: Apixaban 5 MG TAB PO SCH ×2 (11:28→20:43)
[2017-10-01] MEDS: Insulin Regular 300 UNITS/3 ML VIAL SC PRN ×2 (11:31→18:43)
[2017-10-01] MEDS: Atorvastatin Calcium 10 MG TAB PO SCH (20:43)
[2017-10-01] MEDS: Pregabalin 50 MG CAP PO SCH (20:44)
[2017-10-02] MEDS: metFORMIN 500 MG TAB PO SCH (08:23)
[2017-10-02] MEDS: Aspirin 325 MG TAB PO SCH (08:23)
[2017-10-02] MEDS: Furosemide 40 MG TAB PO SCH (08:24)
[2017-10-02] MEDS: Carvedilol 25 MG TAB PO SCH (08:25)
[2017-10-02] MEDS: Famotidine 20 MG TAB PO SCH (08:25)
[2017-10-02] MEDS: Apixaban 5 MG TAB PO SCH (08:25)
[2017-10-02] MEDS: Amlodipine 10 MG TAB PO SCH (08:26)
[2017-10-02] MEDS: HumaLOG 300 UNITS/3 ML VIAL SC SCH ×2 (08:26→12:03)
[2017-10-02] MEDS: Digoxin 0.125 MG TAB PO SCH (08:26)
[2017-10-02] MEDS: HYDROcodone/Acetaminophen 5/325 mg Tablet PO PRN (08:26)
[2017-10-02 12:15] VITALS: BP 117/56; TEMP 98.1
--- NOTE | 2017-10-02 15:43 | DIS ---
DATE OF ADMISSION: 09/27/2017 DATE OF DISCHARGE: 10/02/2017 DIAGNOSES: 1. Severe aortic stenosis. 2. Coronary artery disease. 3. Postoperative atrial fibrillation. 4. Hypertension. 5. Dyslipidemia. 6. Insulin-dependent diabetes mellitus. PROCEDURES: 1. Aortic valve replacement with a #23 Magna bioprosthetic valve. 2. Coronary artery bypass grafting x2 - left internal mammary artery to LAD, reversed saphenous vein to OM1. DESCRIPTION OF HOSPITAL STAY: Ms. Nagy was admitted electively for AVR/CABG. She has done well po stoperatively. She has been in atrial fibrillation and has been loaded with amiodarone. She has als o been started on Eliquis. She is being discharged home in good condition to follow up with me in [address] Avila in a month. DISCHARGE MEDICATIONS: 1. Aspirin 81 mg daily. 2. Amiodarone 400 mg b.i.d. for 5 additional days, followed by 200 mg every day thereafter. 3. Eliquis 5 mg b.i.d. 4. Norvasc 10 mg every day. 5. Coreg 12.5 mg every day. 6. Digoxin 0.125 mcg daily. 7. Lipitor 10 mg at bedtime. 8. Glipizide 10 mg every day. 9. Insulin per her home schedule. 10. Metformin 1000 mg b.i.d. 11. Sulindac 150 mg every day. 11. Lyrica 50 mg at bedtime. 12. [place] 5/325 one to two q.6 hour p.r.n. pain. FOLLOWUP: Follow up is with me in [address] Avila in a month.
== END 2017-10-02 11:53 | disposition home or self-care (01) | DRG 219 ==
LOC: SURG A 09-27 06:57 → CCU 09-27 13:29 → 2NO 09-29 08:55
PROVIDERS: ADMIT Thoracic Surgery (Cardiothoracic Vascular Surgery); ATTEND Thoracic Surgery (Cardiothoracic Vascular Surgery)
PROC: 02100Z9 Bypass Coronary Artery, One Artery from Left Internal Mammary, Open Approach (ICD-10-PCS; principal; 2017-09-27)
PROC: 02RF08Z Replacement of Aortic Valve with Zooplastic Tissue, Open Approach (ICD-10-PCS; 2017-09-27)
PROC: 021009W Bypass Coronary Artery, One Artery from Aorta with Autologous Venous Tissue, Open Approach (ICD-10-PCS; 2017-09-27)
PROC: 06BQ0ZZ Excision of Left Saphenous Vein, Open Approach (ICD-10-PCS; 2017-09-27)
PROC: 5A1221Z Performance of Cardiac Output, Continuous (ICD-10-PCS; 2017-09-27)
PROC: 30233N1 Transfusion of Nonautologous Red Blood Cells into Peripheral Vein, Percutaneous Approach (ICD-10-PCS; 2017-09-27)
DX: I35.0 Nonrheumatic aortic (valve) stenosis (principal); J96.01 Acute respiratory failure with hypoxia; I97.89 Other postprocedural complications and disorders of the circulatory system, not elsewhere classified; E78.5 Hyperlipidemia, unspecified; I25.10 Atherosclerotic heart disease of native coronary artery without angina pectoris; E11.9 Type 2 diabetes mellitus without complications; I10 Essential (primary) hypertension; Z79.4 Long term (current) use of insulin
CPT/HCPCS: 36415; 36416; 36430; 71010; 80048; 80076; 82805; 83735; 84443; 85025; 85610; 85730; 86850; 86900; 86901; 88184; 88305; 93005; 93010; 93798; 94002; 94150; J0282; J0360; J1642; J1644; J1815; J1885; J1940; J2001; J2250; J2270; J2704; J2720; J3010; J3370; J3475; J3480; J7050; J7070; P9016; S0017; S0028

== ENCOUNTER 2018-02-07 09:48 | Emergency (ER) | payer MEDICARE, MEDICAID ==
[2018-02-07] MEDS ORDERED: Acetaminophen/Codeine 30-300mg Tablet ONE (11:09)
== END 2018-02-07 13:39 | disposition home or self-care (01) ==
LOC: ERS 09:48
DX: M54.9 Dorsalgia, unspecified (principal); E11.9 Type 2 diabetes mellitus without complications; I10 Essential (primary) hypertension; M25.551 Pain in right hip; R11.0 Nausea; I25.10 Atherosclerotic heart disease of native coronary artery without angina pectoris; Z79.82 Long term (current) use of aspirin; Z79.84 Long term (current) use of oral hypoglycemic drugs; Z79.899 Other long term (current) drug therapy
CPT/HCPCS: 99283

== ENCOUNTER 2018-02-23 16:48 | Inpatient (IN) | payer MEDICARE, MEDICAID ==
--- NOTE | 2018-02-23 18:02 | RAD ---
PORTABLE CHEST: 02/23/18 HISTORY: Patient fell from chair injuring left hip. COMPARISON: A 09/29/17 study. Heart size is within normal limits with postop sternotomy change. Bilateral pulmonary nodules are see n. Very suspicious for metastatic disease and new as compared to the previous exam. The bones are dem ineralized. No lytic bone lesions. IMPRESSION: Bilateral pulmonary nodules highly suspicious for metastatic disease. POS: [facility]
--- NOTE | 2018-02-23 18:04 | RAD ---
LEFT HIP TWO VIEWS: 02/23/18 HISTORY: Fell out of a chair. There is an intertrochanteric fracture of the left hip with a mild coxa vara deformity. The bones are demineralized. There are vascular calcifications. No definite signs that this is a pathologic fractu re given the chest x-ray findings which show pulmonary nodules. IMPRESSION: Intertrochanteric fracture of the left hip. Findings telephoned to Dr. Sosa and discussion of the chest x-ray findings were also made. POS: [facility]
[2018-02-23] MEDS ORDERED: Fentanyl 100 MCG/2 ML VIAL ONE (18:13)
[2018-02-23 18:46] LABS: Bilirubin Negative (Negative); Blood, Urine Negative (Negative); Clarity CLOUDY (Clear); Glucose, Urine (Dipstick) 250 mg/dL (Negative); Leukocyte Moderate (Negative); Nitrite Positive (Negative); Protein, Urine (Dipstick) Negative (Neg-Trace); Specific Gravity, Urine 1.015 (1.002-1.036); Urobilinogen 0.2 mg/dL (0.2-1.0)
[2018-02-23 18:47] LABS: Bacteria/HPF 4+ HPF (None Seen); Hyaline Casts/LPF 0-3 HYALINE CAST LPF (0-3 Hyaline); Pathc Cast-AUWi Flag 0.14 (0-2.49); Squamous Epithelial 0-3 HPF (0-3); WBC/HPF 21-50 HPF (0-3)
[2018-02-23 18:49] LABS: RBC/HPF None Seen HPF (0-3)
[2018-02-23 18:55] LABS: ALT (SGPT) 11 U/L (8-55); AST (SGOT) 10 U/L (5-34); Albumin 2.7 g/dL (3.4-4.8); Alkaline Phosphatase 107 U/L (40-150); Anion Gap 11 mmol/L (10-20); BUN (Urea Nitrogen) 15 mg/dL (9.8-20.1); Bilirubin, Total 0.3 mg/dL (0.2-1.2); Calc. Creatinine Clearance 0 mL/min (70-130); Calcium 10.6 mg/dL (7.8-10.44); Carbon Dioxide 25 mmol/L (23-31); Chloride 100 mmol/L (98-107); Estimated GFR-MDRD 63; Globulin 3.8 g/dL (2.4-3.5); Glucose 357 mg/dL (83-110); Potassium 3.6 mmol/L (3.5-5.1); Protein, Total 6.5 g/dL (6.0-8.3); Sodium 132 mmol/L (136-145)
[2018-02-23 18:55] LABS: #Eosinphils 0.1 thou/uL (0.0-0.7); #Lymphocytes 0.8 thou/uL (1.20-3.40); #Monocytes 0.7 thou/uL (0.11-0.59); #Neutrophils 11.7 thou/uL (1.40-6.50); %Basophils 0.2 % (0.0-1.0); %Eosinophils 0.7 % (0.0-10.0); %Lymphocytes 6.2 % (21.0-51.0); %Monocytes 5.4 % (0.0-10.0); %Neutrophils 87.5 % (42.0-75.0); Anisocytosis SLIGHT = 6-15 cells (100X) (0-5/hpf); Hemoglobin 7.6 g/dL (12.0-16.0); Hypochromia SLIGHT = 6-15 cells (100X) (0-5/hpf); MDiff Complete? YES; Mean Corpuscular HGB CONC 29.4 g/dL (32.0-36.0); Mean Corpuscular Hemoglobin 21.7 pg (27.0-31.0); Mean Corpuscular Volume 73.8 fl (81.0-99.0); Mean Platelet Volume 6.9 fL (7.4-10.4); Microcytosis SLIGHT = 6-15 cells (100X) (0-5/hpf); Ovalocytes SLIGHT = 2-5 cells (100X) (0-1/hpf); PLT Morphology Comment Appears Increased; Platelet Count 613 thou/uL (130-400); Polychromasia SLIGHT = 2-3 cells (100X) (0-2/hpf); RBC Distribution Width 16.1 % (11.5-14.5); Red Blood Cell (RBC) Count 3.49 mill/uL (4.20-5.40); White Blood Cell (WBC) Count 13.4 thou/uL (4.8-10.8)
--- NOTE | 2018-02-23 23:10 | HP ---
DATE OF ADMISSION: 02/23/2018 REQUESTING PHYSICIAN: Bartolo Sosa MD ATTENDING PHYSICIAN: Dr. Clayton. CONSULTATIONS: Orthopedics, Dr. Anderson. HISTORY OF PRESENT ILLNESS: The patient is a 77-year-old woman who was reportedly going to sit down in her recliner when she misjudged the distance and landed on her buttocks. The patient had immediate left-sided hip pain, was brought to the emergency department via ground EMS. She underwen t evaluation and examination was noted to have a left intratrochanteric hip fracture, at which time, we were asked to evaluate the patient for admission and obtain orthopedic consultation. The patient denies shortness of breath, dizziness, or any syncopal-type symptoms prior to her fall. The patient also did not have any loss of consciousness or hit her head. ALLERGIES: None. MEDICATIONS: Eliquis, metformin, atorvastatin, furosemide, Lyrica, amlodipine, and aspirin. PAST MEDICAL HISTORY: Coronary artery disease, diabetes, hypertension. PAST SURGICAL HISTORY: Two-vessel coronary artery bypass graft surgery. SOCIAL HISTORY: Patient lives with her family. She denies drug, tobacco, or alcohol use. FAMILY MEDICAL HISTORY: Diabetes. REVIEW OF SYSTEMS: Ten-point review of systems is negative, unless otherwise stated. PHYSICAL EXAMINATION: VITAL SIGNS: Blood pressure 151/65, heart rate 91, respirations 20, oxygen saturation is 98% on room air, temperature is 98.6. GENERAL: The patient is resting comfortably in bed. She is awake, alert, and oriented x3. [place] coma scale is 15. HEENT: Head is normocephalic, atraumatic. Eyes: Extraocular motion intact. PERRLA bilaterally. E ars are atraumatic without discharge. Nose is atraumatic without discharge. Oropharynx is clear. NECK: Nontender. Trachea is midline. No JVD. CHEST: Clear to auscultation with good inspiratory and expiratory effort. HEART: Regular rate and rhythm. ABDOMEN: Soft, flat, nontender with active bowel sounds. Pelvis is stable with tenderness to palpat ion to the left hip consistent with her fracture. EXTREMITIES: Neurovascularly intact x4. Capillary refill is less than 3 seconds. Pulses are 2+. BACK: By report the back is atraumatic and nontender. LABORATORY FINDINGS: White blood cell count 13.4, hemoglobin 7.6, hematocrit 25.8, platelets 613,000 . Sodium 132, potassium 3.6, chloride 100, CO2 of 25, BUN 15, creatinine 0.87, glucose 357. LFTs ar e unremarkable. Urinalysis 21-50 wbc's, 4+ bacteria, positive for leukocyte esterase and nitrite. RADIOGRAPHIC FINDINGS: Two views of the left hip show an intertrochanteric fracture of the left hip. Portable chest shows bilateral pulmonary nodules, highly suspicious for metastatic disease. ASSESSMENT AND PLAN: 1. Status post ground level fall. 2. Acute left hip fracture. 3. Hyperglycemia. 4. Anemia. 5. Urinary tract infection. 6. Newly found pulmonary nodules suspicious for metastatic disease. Plan will be to admit the patient to the surgical floor. We will obtain clearance from the cardiovas cular surgeon who did her 2-vessel CABG in September, Dr. Bernardo unsure he is okay with the patient hav ing surgery, fluid hydration, and sliding scale insulin type and cross for 2 units of blood and posto peratively we will make plan for these newly discovered pulmonary nodules. Evaluation, examination, laboratory, and radiographic findings were discussed with Dr. Hughes at time of this dictation. The patient was also seen by Dr. Anderson.
[2018-02-24] MEDS ORDERED: Fentanyl 100 MCG/2 ML VIAL ONE ×3 (00:29→17:50)
[2018-02-24] MEDS ORDERED: Morphine 4 MG/ML VIAL SLOW IVP PRN ×3 (01:22→01:58)
[2018-02-24] MEDS ORDERED: Dextrose 50% Abboject 50 ML SYRINGE SLOW IVP PRN (01:22)
[2018-02-24] MEDS ORDERED: Ondansetron HCl/PF 4 MG/2 ML Vial IVP PRN ×2 (01:22→18:31)
[2018-02-24] MEDS ORDERED: Ondansetron ODT 4 MG TAB PO PRN (01:22)
[2018-02-24] MEDS ORDERED: hydrALAZINE 20 MG/ML VIAL SLOW IVP PRN (01:22)
[2018-02-24] MEDS ORDERED: Dextrose 5% in Water 1,000 ML IV PRN (01:22)
[2018-02-24 01:44] VITALS: BMI 29.9
[2018-02-24] MEDS: Ketorolac Tromethamine 30 MG/ML VIAL IVP SCH ×4 (02:18→20:35)
[2018-02-24] MEDS: Acetaminophen 1,000 MG in Premix Bag 1 BAG IVPB SCH ×4 (02:18→20:34)
[2018-02-24] MEDS: Sodium Chloride 0.9% 1,000 ML IV SCH ×3 (02:19→19:51)
[2018-02-24 05:47] LABS: #Basophils 0.1 thou/uL (0.0-0.2); #Eosinphils 0.1 thou/uL (0.0-0.7); #Lymphocytes 1.1 thou/uL (1.20-3.40); #Neutrophils 9.6 thou/uL (1.40-6.50); %Basophils 0.4 % (0.0-1.0); %Eosinophils 0.7 % (0.0-10.0); %Lymphocytes 9.5 % (21.0-51.0); %Monocytes 8.7 % (0.0-10.0); %Neutrophils 80.7 % (42.0-75.0); Hemoglobin 7.3 g/dL (12.0-16.0); Mean Corpuscular HGB CONC 30.7 g/dL (32.0-36.0); Mean Corpuscular Hemoglobin 22.3 pg (27.0-31.0); Mean Corpuscular Volume 72.6 fl (81.0-99.0); Mean Platelet Volume 6.8 fL (7.4-10.4); Platelet Count 569 thou/uL (130-400); RBC Distribution Width 16.3 % (11.5-14.5); Red Blood Cell (RBC) Count 3.29 mill/uL (4.20-5.40); White Blood Cell (WBC) Count 11.9 thou/uL (4.8-10.8)
[2018-02-24 06:31] LABS: Anion Gap 9 mmol/L (10-20); BUN (Urea Nitrogen) 12 mg/dL (9.8-20.1); Calc. Creatinine Clearance 70 mL/min (70-130); Calcium 9.9 mg/dL (7.8-10.44); Carbon Dioxide 27 mmol/L (23-31); Chloride 102 mmol/L (98-107); Estimated GFR-MDRD 72; Glucose 277 mg/dL (83-110); Potassium 3.2 mmol/L (3.5-5.1); Sodium 135 mmol/L (136-145)
[2018-02-24] MEDS ORDERED: Ondansetron HCl/PF 4 MG/2 ML Vial ONE ×2 (10:09→15:58)
[2018-02-24] MEDS ORDERED: PROPOFOL 200 MG/20 ML VIAL ONE (10:09)
[2018-02-24] MEDS ORDERED: PHENYLEPHRINE-NS 100 MCG/ML 10 ML SYRINGE ONE (10:09)
[2018-02-24] MEDS ORDERED: Lidocaine 1% PF 5 ML VIAL ONE (10:09)
[2018-02-24] MEDS: Famotidine 20 MG TAB PO SCH (11:38)
--- NOTE | 2018-02-24 12:41 | PDOC.PN ---
- Subjective Encounter Start Date: 02/24/18 Encounter Start Time: 08:20 Subjective: no sob or chest pain or palp -: was 187lbs in sep 2018, has lost nearly 30lbs -: no bleeding per rectum/vagina - Objective MAR Reviewed: Yes Vital Signs & Weight: Vital Signs (12 hours) Temp Pulse Resp BP Pulse Ox 02/24/18 08:00 98.8 F 83 15 02/24/18 07:00 98.8 F 83 15 147/60 H 02/24/18 04:00 99.0 F 92 18 145/55 H 91 L 02/24/18 02:39 95 143/64 H 02/24/18 01:30 98.9 F 95 18 02/24/18 01:05 98.9 F 99 18 179/71 H 94 L Weight Weight 158 lb 8 oz I&O: 02/23/18 02/24/18 02/25/18 06:59 06:59 06:59 Intake Total 400 Output Total 350 Balance 50 Result Diagrams: 02/24/18 04:31 02/24/18 04:31 Additional Labs: Accuchecks 02/24/18 06:04 POC Glucose 255 H Phys Exam - Physical Examination HEENT: PERRLA, moist MMs pallor+ Neck: no JVD, supple Respiratory: no wheezing, no rales Cardiovascular: RRR, no significant murmur Gastrointestinal: soft, non-tender, positive bowel sounds no rigidity or guarding Musculoskeletal: no edema, pulses present left leg hurts to move, in external rotation+ Neurological: non-focal Psychiatric: normal affect, A&O x 3 Dx/Plan (1) Fracture of femoral neck, left Code(s): S72.002A - FRACTURE OF UNSP PART OF NECK OF LEFT FEMUR, INIT Status: Acute Qualifiers: Encounter type: initial encounter Fracture type: closed Qualified Code(s) : S72.002A - Fracture of unspecified part of neck of left femur, initial encounter for closed fracture (2) CAD (coronary artery disease) Code(s): I25.10 - ATHSCL HEART DISEASE OF [place] CORONARY ARTERY W/O ANG PCTRS Status: Acute Qualifiers: Coronary Disease-Associated Artery/Lesion type: bypass graft [place] vs. transplanted heart: [place] heart Associated angina: without angina Qualified Code(s): I25.810 - Atherosclerosis of coronary artery bypass graft(s) without angina pectoris Comment: done in 09/2018 (3) H/O heart valve replacement with bioprosthetic valve Code(s): Z95.3 - PRESENCE OF XENOGENIC HEART VALVE Status: Acute Comment: avr done 09/2018 (4) Multiple lesions of metastatic malignancy Code(s): C79.9 - SECONDARY MALIGNANT NEOPLASM OF UNSPECIFIED SITE Status: Acute Comment: new diagnosis, unknown primary (5) UTI (urinary tract infection) Status: Acute Qualifiers: Urinary tract infection type: acute cystitis Hematuria presence: without hematuria Qualified Code(s): N30.00 - Acute cystitis without hematuria (6) Iron deficiency anemia Code(s): D50.9 - IRON DEFICIENCY ANEMIA, UNSPECIFIED Status: Chronic (7) DM type 2 (diabetes mellitus, type 2) Status: Chronic Qualifiers: Diabetes mellitus terminal make up operator insulin use: with terminal make up operator use Diabetes mellitus complication status: with unspecified complications Qualified Code(s) : E11.8 - Type 2 diabetes mellitus with unspecified complications; Z79.4 - FPC (current) use of insulin; Z79.4 - FPC (current) use of insulin; Z79.4 - FPC (current) use of insulin; Z79.4 - long term care pharmacist (current) use of insulin (8) Afib Code(s): I48.91 - UNSPECIFIED ATRIAL FIBRILLATION Status: Chronic Qualifiers: Atrial fibrillation type: paroxysmal Qualified Code(s): I48.0 - Paroxysmal atrial fibrillation (9) Hypoalbuminemia Code(s): E88.09 - H DISORDERS OF PLASMA-PROTEIN METABOLISM, NEC Status: Chronic - Plan is cleared for left hip fracture surgery ?bipolar screw fixation -: type of anesthesia per anesthesia service advice -: d/w , needs biopsy, unclear if inguinal node is enough if so can -: be done at bedside. -: poor prognosis given multiple mets and large masses in the abd/pelvic area * . Was very functional prior to arrival, has pain on minimal movement of left LE, hence will need surgery to fix her hip. Will discuss above findings with children and patient shortly and the risks assoc with surgery/anesthesia/wound healing (low alb) May proceed with surgery if family is aware/agree of all the risks involved with surgery. H/H post surgery, transfuse if needed to keep Hb above 7-8g. Bone bx, is aware. Has L2 lesion in the body, for anesthesia to be aware. Review of Systems - Medications/Allergies Allergies/Adverse Reactions: Allergies Allergy/AdvReac Type Severity Reaction Status Date / Time No Known Allergies Allergy Verified 09/26/17 13:32 Medications: Current Medications Albuterol/Ipratropium (Duoneb) 3 ml NEB Q4H PRN PRN Reason: Wheezing Cefazolin Sodium (Ancef) 2 gm SLOW IVP ONCALL-OR [facility] Stop: 02/24/18 20:16 Dextrose/Water (Dextrose 50%) 25 gm SLOW IVP PRN PRN PRN Reason: Hypoglycemia Famotidine (Pepcid) 20 mg PO DAILY [facility] Last Admin: 02/24/18 11:38 Dose: Not Given Glucagon (Glucagon) 1 mg IM PRN PRN PRN Reason: Hypoglycemia Hydralazine HCl (Apresoline) 10 mg SLOW IVP Q6H PRN PRN Reason: SBP > 150 Acetaminophen 1,000 mg/ Device 100 mls @ 400 mls/hr IVPB 0200,0800,1400,2000 [facility] Stop: 02/24/18 20:14 Last Admin: 02/24/18 09:40 Dose: 100 mls Dextrose/Water (D5w) 1,000 mls @ 0 mls/hr IV .Q0M PRN; As Directed PRN Reason: Hypoglycemia Sodium Chloride (Normal Saline 0.9%) 1,000 mls @ 120 mls/hr IV .Q8H20M [facility] Last Admin: 02/24/18 11:38 Dose: Not Given Insulin Human Lispro (Humalog) 0 units SC .MILD SLIDING SCALE PRN PRN Reason: Mild Correctional Scale Ketorolac Tromethamine (Toradol) 15 mg IVP 0200,0800,1400,2000 [facility] Stop: 02/24/18 20:01 Last Admin: 02/24/18 09:41 Dose: 15 mg Morphine Sulfate (Morphine) 4 mg SLOW IVP Q2H PRN PRN Reason: Moderate to Severe Pain (6-10) Morphine Sulfate (Morphine) 2 mg SLOW IVP Q2H PRN PRN Reason: Moderate Pain (4-5) Last Admin: 02/24/18 05:21 Dose: 2 mg Ondansetron HCl (Zofran Odt) 4 mg PO Q6H PRN PRN Reason: Nausea/Vomiting Ondansetron HCl (Zofran) 4 mg IVP Q6H PRN PRN Reason: Nausea Sodium Chloride (Flush - Normal Saline) 10 ml IVF PRN PRN PRN Reason: Saline Flush Last Admin: 02/24/18 02:18 Dose: 10 ml
[2018-02-24] MEDS ORDERED: ISOVUE-370 76%-LOCM 1 ML ONE (13:06)
[2018-02-24] MEDS ORDERED: CEFAZOLIN/Water 2 GM/20 ML SYRINGE ONE (13:13)
--- NOTE | 2018-02-24 13:27 | CT ---
CT THORAX WITH IV CONTRAST CT ABDOMEN AND PELVIS WITH IV CONTRAST: DATE: 02/24/18. HISTORY: Multiple pulmonary nodules seen on recent chest x-ray. Findings were suspicious of metastatic diseas e. FINDINGS: CT THORAX: Multiple bilateral pulmonary nodules are present throughout the lungs bilaterally. The largest pulmo nary nodule on the left is seen in the left upper lobe in the region of the left lung apex measuring 2.7 cm in maximal dimensions. The largest pulmonary nodule on the right is present within the medial aspect of the right lung base measuring 2.3 cm. There is a mass-like density in the right hilar reg ion which may also represent a parenchymal nodule or possibly an enlarged lymph node. This hypodense mass-like structure measures 3.3 cm. There are punctate cavitations seen in several of the dominant bilateral pulmonary nodules. There is an enlarged precarinal lymph node present measuring 1.4 cm in short axis dimension. Mildly prominent superior mediastinal lymph node is also present. Small bilateral pleural effusions and associated passive atelectasis is present. Vascular calcifications are seen in the coronary arteries and thoracic aorta. There is evidence of a ortic valve replacement with median sternotomy wires present. Degenerative changes are seen in the spine. However, no obvious lytic or sclerotic osseous lesions a ppreciated. CT ABDOMEN AND PELVIS: There are multiple heterogeneous enhancing irregular lobulated masses seen throughout the abdomen see n within the anterior aspect of the abdomen as well as in the right lateral aspect of the mid abdomen and in the anterior upper pelvis. The largest conglomeration of mass-like densities in the right ab domen measures 11.7 cm x 4.1 cm with a large lobulated mass seen in the anterior pelvis measuring 5.7 cm with low-density area essentially which could be related to necrosis. A 2.6 cm hypodense lesion is seen in the superior pole of the spleen with a few scattered hypodense l esions seen within the right and left hepatic lobes with the largest lesion seen in the lateral segme nt left hepatic lobe measuring 1.9 cm likely related to metastatic lesions involving both the liver a nd spleen. The gallbladder is distended measuring 11.4 cm in length. Multiple gallbladder calculi are visualize d. There is a nonobstructing approximately 3-4 mm calculus in the mid portion left kidney. The kidneys otherwise have a normal CT appearance and no enhancing renal mass is seen. The pancreas and bilateral adrenal glands demonstrate a normal CT appearance. There is gas seen within the nondependent portion of the urinary bladder which may be related to rece nt catheterization. Clinical correlation is recommended. There is a small enhancing nodule seen at the right posterolateral aspect of the urinary bladder measuring 1.4 cm. I am unsure if this is rela kanu to a small enhancing lesion external to the urinary bladder along the urinary bladder wall or thi s represents a lesion within the wall of the urinary bladder. The uterus is lobulated in appearance with a low-density area seen centrally in addition to a calcifi ed uterine fibroid in the uterine fundus. Low-density area centrally within the uterus may represent a large uterine fibroid, but this cannot be confirmed based on CT evaluation. An increased attenuation mass is seen adjacent to the uterus on the left measuring 1.7 cm. There are enlarged bilateral inguinal lymph nodes, the largest lymph node on the right measuring 1.9 cm in short axis dimension and the largest on the left measuring 1.4 cm in short axis dimension. There is sclerosis and slight heterogeneity involving the L2 vertebral body which may be related to a metastatic lesion. No additional lytic or sclerotic osseous lesions are seen. A comminuted intertrochanteric left hip fracture is identified. IMPRESSION: 1. Metastatic disease with multiple cavitated bilateral pulmonary nodules, mediastinal and inguinal lymphadenopathy, abdominal mesenteric masses, and hepatic and splenic lesions. 2. Focus of enhancement seen along the posterolateral wall of the urinary bladder on the right which could be related to a metastatic deposit adjacent to the wall of the urinary bladder, but a lesion w ithin the urinary bladder could not be entirely excluded. Direct visualization may be helpful. 3. Slightly increased attenuation mass seen adjacent to the uterus on the left measuring 1.7 cm. Th is cannot be confirmed to represent the ovary on this exam, and metastatic lesion is a possibility. 4. Heterogeneity and sclerosis involving the L2 vertebral body with slight irregularity of the end p lates. This is worrisome for an osseous metastatic disease. Bone scan may be helpful for further ev aluation. 5. Comminuted intertrochanter of left hip fracture. 6. Small bilateral pleural effusions and atelectasis. 7. Distention of the gallbladder with evidence of cholelithiasis. POS: [facility]
--- NOTE | 2018-02-24 13:40 | PRG ---
DATE OF SERVICE: 02/24/2018 SUBJECTIVE: Ms. Nagy's CT scan is reviewed and discussed with the patient and her family. She has a history of hip fracture and set for ORIF of that this afternoon. She had evidence of metastatic l jovanna disease on her preop chest x-ray. CT scan of the abdomen and pelvis reveals multiple intra-abdom inal masses, liver. There is one along the right pericolic gutter. There is also some lymphadenopat hy. There is prominent node in the right groin. The patient notes colonoscopy that was normal as we ll as EGD in September. ASSESSMENT AND PLAN: Plan is for ORIF of hip today. Further workup for this potential metastatic di sease, which could include more screening labs, possible biopsy either lymph node biopsy to groin or CT guided intraabdominal biopsy.
[2018-02-24] MEDS ORDERED: Morphine 4 MG/ML VIAL ONE (14:09)
--- NOTE | 2018-02-24 15:57 | PRG ---
DATE OF SERVICE: 02/24/2018 SUBJECTIVE: I was asked by Dr. Huitron to evaluate this patient for a biopsy while she was going to be under anesthesia for repair of her left hip fracture. I reviewed her CT scans revealing lesio ns within the lung, liver, spleen, peritoneal cavity and bilateral inguinal lymph nodes. On examinat ion, she has an easily palpable right inguinal lymph node. Since she has a left hip fracture, I woul d recommend biopsy of the right groin under the same anesthetic. While it is entirely possible, ther e is a malignant bone at the site of the fracture, this cannot be discerned with any degree of certai nty that this will yield appropriate tissue for diagnosis and I therefore recommend obtaining a lymph node under the same anesthetic. I have discussed the operation in detail with the patient as well a s potential risks. She understands and agrees to undergo this procedure simultaneously through other procedure.
[2018-02-24] MEDS ORDERED: Bupivacaine/Epinephrine 0.25% 30 ML VIAL ONE (16:52)
--- NOTE | 2018-02-24 17:38 | RAD ---
LEFT FEMUR INTRAOPERATIVE FLUOROSCOPY TWO VIEWS: 02/24/18 HISTORY: Hip fracture. FINDINGS/IMPRESSION: Intraoperative fluoroscopy is provided for internal fixation as performed by Dr. Carbone. Spot fluor oscopic images show long [place] transfixing the femoral shaft, extending to the distal femur, held in pl anita by a single screw laterally. Compression nail also transfixes the femoral neck. POS: [facility]
[2018-02-24] MEDS ORDERED: Promethazine HCl 25 MG/ML VIAL ONE (17:50)
[2018-02-24 18:17] LABS: Actual Bicarbonate (HCO3a) 25.9 mEq/L (22-26); Base Excess (BEa) 0.5 mEq/L (0 (+/-) 2.5); CO2 Tension 45.9 mmHg (35.0-45.0); Hematocrit-ABG 28.7 % (36.0-47.0); Hemoglobin (Hb) 7.5 g/dL (12.0-16.0); O2 Tension (PaO2) 79.1 mmHg (80.0-100.0); pH, Arterial 7.37 (7.35-7.45)
[2018-02-24 18:18] LABS: Calcium, Ionized 1.4 mmol/L (1.12-1.30); Puncture Site RR
[2018-02-24] MEDS ORDERED: Amiodarone 200 MG TAB PO SCH (18:30)
[2018-02-24] MEDS ORDERED: Digoxin 0.25 MG TAB PO SCH (18:30)
[2018-02-24] MEDS ORDERED: Promethazine HCl 25 MG/ML VIAL SLOW IVP PRN (18:31)
[2018-02-24] MEDS ORDERED: Promethazine HCl 25 MG/ML VIAL IM PRN (18:31)
--- NOTE | 2018-02-24 19:29 | RAD ---
AP VIEW OF THE CHEST: 02/24/18 INDICATION: History of shortness of breath. COMPARISON: Chest radiograph dated 02/23/[address] of the chest, abdomen and pelvis dated 02/24/18. FINDINGS: Small bilateral pleural effusions persists. Bibasilar air space opacity-like related atelectasis is s imilar. Scattered pulmonary nodules are stable suspicious for metastatic disease. Mild cardiomegaly i s similar. Osseous structures are unchanged. IMPRESSION: 1. Persistent small bilateral pleural effusions with bibasilar opacities suspicious for atelecta sis. 2. Stable pulmonary metastatic disease. Right lower lobe parenchymal opacity with small right pl eural effusion may reflect sequela of atelectasis or potentially aspiration. Recommend correlation wi th clinical examination. 3. Mild suspected atelectasis in the left lower lobe. 4. Stable cardiomegaly. POS: [facility]
[2018-02-24 19:53] LABS: CKMB 1.8 ng/mL (0-6.6); Troponin I Less than 0.010 ng/mL (< 0.028)
[2018-02-24] MEDS ORDERED: CEFAZOLIN/Water 2 GM/20 ML SYRINGE SLOW IVP SCH (20:15)
[2018-02-24] MEDS: Digoxin 0.125 MG TAB PO SCH (20:30)
[2018-02-24] MEDS: Pregabalin 50 MG CAP PO SCH (20:31)
[2018-02-24] MEDS: HumaLOG 300 UNITS/3 ML VIAL SC PRN (22:32)
[2018-02-24] MEDS: Carvedilol 6.25 MG TAB PO SCH ×2 (22:39→23:25)
--- NOTE | 2018-02-24 23:43 | PDOC.EVN ---
Event Note - Event Note Event Note: called for SOB and spo2 88% despite 3LNC pt takes lasix 20mg PO QOD - had small b/l pleural effusions on CXR earlier today and just rec'd 1upRBC will trial lasix 20mg IV x1 now, repeat CXR after, close monitoring of I/O d/w bedside nsg
[2018-02-24] MEDS ORDERED: Furosemide 20 MG/2 ML VIAL SLOW IVP SCH (23:45)
[2018-02-25] MEDS: CEFAZOLIN/Water 2 GM/20 ML SYRINGE SLOW IVP SCH ×3 (00:09→14:13)
[2018-02-25] MEDS: Sodium Chloride 0.9% 1,000 ML IV SCH (03:26)
[2018-02-25] MEDS: HumaLOG 300 UNITS/3 ML VIAL SC PRN ×4 (06:28→20:30)
[2018-02-25 06:31] LABS: Hemoglobin 7.9 g/dL (12.0-16.0)
[2018-02-25] MEDS ORDERED: traMADol HCl 50 MG TAB PO PRN (08:14)
[2018-02-25] MEDS ORDERED: Furosemide 40 MG/4 ML VIAL SLOW IVP SCH (08:30)
--- NOTE | 2018-02-25 08:46 | RAD ---
CHEST 1 VIEW: COMPARISON: 02/24/18. HISTORY: Pleural effusion. FINDINGS: There is cardiomegaly. There are sternotomy wires. Persistent pleural and parenchymal changes. Ext ensive multifocal lung parenchymal masses. NO pneumothorax. IMPRESSION: No significant interval change. POS: [facility]
[2018-02-25 09:11] LABS: Anion Gap 14 mmol/L (10-20); BUN (Urea Nitrogen) 11 mg/dL (9.8-20.1); Calc. Creatinine Clearance 66 mL/min (70-130); Calcium 9.5 mg/dL (7.8-10.44); Carbon Dioxide 22 mmol/L (23-31); Chloride 105 mmol/L (98-107); Estimated GFR-MDRD 68; Glucose 227 mg/dL (83-110); Phosphorus 3.1 mg/dL (2.3-4.7); Potassium 3.2 mmol/L (3.5-5.1); Sodium 138 mmol/L (136-145)
--- NOTE | 2018-02-25 09:11 | OP ---
DATE OF SURGERY: 02/24/2018. PREOPERATIVE DIAGNOSIS: Left intertrochanteric femur fracture. POSTOPERATIVE DIAGNOSIS: Left intertrochanteric femur fracture. SURGICAL PROCEDURE: TFN left femur. ANESTHESIA: General. SURGEON: Jan Carbone M.D. ONBOARDING SPECIALIST: Bear Desai PA-C. IMPLANTS: Synthes TFN 14 x 380 mm with 85 mm hip screw. ESTIMATED BLOOD LOSS: 150 mL COMPLICATIONS: None. DRAINS: None. SPECIMEN: Bone reamings from both femoral neck and femoral shaft sent to pathology for micro to rule out pathologic fracture. OUTCOME: Satisfactory. INDICATIONS: The patient is a 77-year-old lady who sustained a ground level fall, fracturing her lef t intertrochanteric femur. Preoperative workup has shown multiple lesions within her lungs and at th is time, the patient is undergoing workup for cancer. She does have this unstable femur fracture and is felt to be stable for surgery and as such we will proceed with stabilization and also obtain bone specimen to rule out pathologic fracture. Patient is also going to have a lymph node biopsy perform ed by Dr. Hughes following our procedure. Informed consent has been obtained. I believe all questi ons have been answered. DESCRIPTION OF PROCEDURE: The patient was brought to the operating room and a timeout performed foll owed by induction of general anesthesia. The patient was then positioned on the fracture table with the well leg held in extension and slightly scissored to allow for AP and lateral imaging of the left hip. The left leg was then brought into longitudinal traction. With some internal rotation, the fr acture could be reduced to a reasonable level. Next, a sterile prep and drape was performed of the l eft lateral thigh. A small incision was made proximal to greater trochanter. After skin was sharply incised, dissection was carried down bluntly such that the tip of the greater trochanter could be pa lpated. A threaded guidewire was then placed at the medial aspect of the greater trochanter and pass ed into the canal of the femur. The opening reamer was then passed over this threaded guidewire. Th e guidewire was then removed and a ball tipped guidewire passed down the shaft of the femur. Next, a 15 mm reamer was passed over this ball tipped guidewire and minimal chatter achieved and as such, a 14 x 380 mm nail was passed over the guidewire. Once positioned at an appropriate depth, the hip screw jig was passed through a second small incision and a threaded guidewire was passed through the lateral cortex of the femur up into the femoral head in a near center-center position. Measurement of this guidewire showed that 85 mm hip screw would b e of appropriate length. As such, a reamer passed over the guidewire and then the screw inserted in standard fashion. The locking mechanism was then engaged and backed off a half turn to allow for sli ding of the hip screw. Next, using freehand technique, a single distal cross lock screw was placed i n freehand fashion. Following this, AP, lateral C-arm images were obtained that showed acceptable al ignment of the fracture and hardware. The three incisions were irrigated with bulb syringe and then closed in layers with 2-0 Vicryl and roger for the skin. Xeroform gauze tape dressing was applied to the thigh and then patient was transferred to recovery room in stable condition. There were no co mplications. She tolerated the procedure well.
--- NOTE | 2018-02-25 09:16 | PRG ---
DATE OF SERVICE: 02/25/2018 SUBJECTIVE: Ms. Nagy is postoperative day #1 from repair of a left hip fracture by Dr. Tona gustafson d excision of a large malignant right inguinal lymph node by myself. 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 Final patholog ic studies on this are pending, and will not be available until next week. She notes appropriate mild discomfort at the right inguinal incision. OBJECTIVE: VITAL SIGNS: On examination, she is afebrile, pulse 89, blood pressure 129/57. LUNGS: Clear to auscultation. ABDOMEN: Benign. Right groin incision is healing appropriately with Dermabond intact. LABORATORY STUDIES: Hemoglobin today is 7.9, which is up from 7.3 yesterday. Her Accu-Chek glucose levels remain elevated between 260-290. ASSESSMENT AND PLAN: The patient is stable following her lymph node biopsy. It is likely that her h ip fracture is secondary to pathologic fracture related to her diffuse cancer. The etiology of her c ancer is uncertain at this time. Hopefully, the lymph node biopsy results will shed some light on is next week. Activity level will be up to the orthopedic surgeons. She will need an oncology consult this next we ek as well.
[2018-02-25] MEDS: Famotidine 20 MG TAB PO SCH (09:28)
[2018-02-25] MEDS: Carvedilol 6.25 MG TAB PO SCH ×2 (09:28→20:22)
[2018-02-25] MEDS: Acetaminophen 500 MG TAB PO SCH ×3 (09:28→20:22)
[2018-02-25] MEDS: Atorvastatin Calcium 10 MG TAB PO SCH (09:28)
[2018-02-25] MEDS: traMADol HCl 50 MG TAB PO SCH ×3 (09:29→20:21)
--- NOTE | 2018-02-25 11:41 | PDOC.PN ---
- Subjective Encounter Start Date: 02/25/18 Encounter Start Time: 08:15 Subjective: no sob or chest pain or palp -: not much pain at operated site in left thigh - Objective MAR Reviewed: Yes Vital Signs & Weight: Vital Signs (12 hours) Temp Pulse Resp BP BP BP Pulse Ox 02/25/18 11:15 98.6 F 86 12 112/52 L 92 L 02/25/18 09:28 129/57 L 02/25/18 08:56 100 17 02/25/18 07:30 98.3 F 89 20 129/57 L 92 L 02/25/18 04:09 98.6 F 90 16 155/55 H 100 Weight Weight 158 lb 8 oz I&O: 02/24/18 02/25/18 02/26/18 06:59 06:59 06:59 Intake Total 400 1900 Output Total 350 950 Balance 50 950 Result Diagrams: 02/25/18 04:48 02/25/18 04:45 Additional Labs: Accuchecks 02/25/18 02/24/18 02/24/18 05:40 19:46 18:41 POC Glucose 260 H 294 H 294 H Phys Exam - Physical Examination HEENT: PERRLA, moist MMs Neck: no JVD, supple Respiratory: no wheezing, no rales Cardiovascular: RRR, no significant murmur Gastrointestinal: soft, non-tender, positive bowel sounds right inguinal lymph node excision site is clean Musculoskeletal: no edema, pulses present Neurological: non-focal, moves all 4 limbs Psychiatric: normal affect, A&O x 3 Dx/Plan (1) Fracture of femoral neck, left Code(s): S72.002A - FRACTURE OF UNSP PART OF NECK OF LEFT FEMUR, INIT Status: Acute Qualifiers: Encounter type: initial encounter Fracture type: closed Qualified Code(s) : S72.002A - Fracture of unspecified part of neck of left femur, initial encounter for closed fracture Comment: s/p TF nail 02/24/2018 (2) CAD (coronary artery disease) Code(s): I25.10 - ATHSCL HEART DISEASE OF [place] CORONARY ARTERY W/O ANG PCTRS Status: Acute Qualifiers: Coronary Disease-Associated Artery/Lesion type: bypass graft [place] vs. transplanted heart: [place] heart Associated angina: without angina Qualified Code(s): I25.810 - Atherosclerosis of coronary artery bypass graft(s) without angina pectoris Comment: done in 09/2017 (3) H/O heart valve replacement with bioprosthetic valve Code(s): Z95.3 - PRESENCE OF XENOGENIC HEART VALVE Status: Acute Comment: avr done 09/2017 (4) Multiple lesions of metastatic malignancy Code(s): C79.9 - SECONDARY MALIGNANT NEOPLASM OF UNSPECIFIED SITE Status: Acute Comment: new diagnosis, unknown primary, s/p right inguinal lymph node Bx 02/24/2018 (5) UTI (urinary tract infection) Status: Acute Qualifiers: Urinary tract infection type: acute cystitis Hematuria presence: without hematuria Qualified Code(s): N30.00 - Acute cystitis without hematuria (6) Iron deficiency anemia Code(s): D50.9 - IRON DEFICIENCY ANEMIA, UNSPECIFIED Status: Chronic Comment : with ac blood loss post op, recieved 1 u prbc 02/24/2018 (7) DM type 2 (diabetes mellitus, type 2) Status: Chronic Qualifiers: Diabetes mellitus half-way insulin use: with technician terminal and repeater use Diabetes mellitus complication status: with unspecified complications Qualified Code(s) : E11.8 - Type 2 diabetes mellitus with unspecified complications; Z79.4 - intermediate (current) use of insulin; Z79.4 - manager intermediate (current) use of insulin; Z79.4 - manager intermediate (current) use of insulin; Z79.4 - intermediate (current) use of insulin (8) Afib Code(s): I48.91 - UNSPECIFIED ATRIAL FIBRILLATION Status: Chronic Qualifiers: Atrial fibrillation type: paroxysmal Qualified Code(s): I48.0 - Paroxysmal atrial fibrillation (9) Hypoalbuminemia Code(s): E88.09 - [facility] DISORDERS OF PLASMA-PROTEIN METABOLISM, NEC Status: Chronic - Plan is on coreg, lipitor, dig, nebs prn -: levaquin for uti -: morphine prn pain, dc iv fluids if pt is tolerating oral diet -: d/w family at bedside -: PT to mobilize per ortho advice, await histopath * . Pt prefers to go home than go to rehab, is still discussing with her children. Review of Systems - Medications/Allergies Allergies/Adverse Reactions: Allergies Allergy/AdvReac Type Severity Reaction Status Date / Time No Known Allergies Allergy Verified 09/26/17 13:32 Medications: Current Medications Acetaminophen (Tylenol) 1,000 mg PO 0300,0900,1500,2100 [facility] Last Admin: 02/25/18 09:28 Dose: 1,000 mg Albuterol/Ipratropium (Duoneb) 3 ml NEB Q4H PRN PRN Reason: Wheezing Last Admin: 02/24/18 23:16 Dose: 3 ml Albuterol/Ipratropium (Duoneb) 3 ml IPPB [id number] [facility] Atorvastatin Calcium (Lipitor) 10 mg PO QAM [facility] Last Admin: 02/25/18 09:28 Dose: 10 mg Carvedilol (Coreg) 6.25 mg PO BID [facility] Last Admin: 02/25/18 09:28 Dose: 6.25 mg Cefazolin Sodium (Ancef) 2 gm SLOW IVP Q8HR [facility] Stop: 02/25/18 14:01 Last Admin: 02/25/18 06:08 Dose: 2 gm Dextrose/Water (Dextrose 50%) 25 gm SLOW IVP PRN PRN PRN Reason: Hypoglycemia Digoxin (Lanoxin) 0.125 mg PO QPM [facility] Last Admin: 02/24/18 20:30 Dose: Not Given Famotidine (Pepcid) 20 mg PO DAILY [facility] Last Admin: 02/25/18 09:28 Dose: 20 mg Glucagon (Glucagon) 1 mg IM PRN PRN PRN Reason: Hypoglycemia Hydralazine HCl (Apresoline) 10 mg SLOW IVP Q6H PRN PRN Reason: SBP > 150 Dextrose/Water (D5w) 1,000 mls @ 0 mls/hr IV .Q0M PRN; As Directed PRN Reason: Hypoglycemia Insulin Human Lispro (Humalog) 0 units SC .MILD SLIDING SCALE PRN PRN Reason: Mild Correctional Scale Last Admin: 02/25/18 06:28 Dose: 4 unit Levofloxacin (Levaquin) 500 mg PO 0600 [facility] Last Admin: 02/25/18 06:08 Dose: 500 mg Ondansetron HCl (Zofran Odt) 4 mg PO Q6H PRN PRN Reason: Nausea/Vomiting Ondansetron HCl (Zofran) 4 mg IVP Q6H PRN PRN Reason: Nausea Pregabalin (Lyrica) 50 mg PO HS [facility] Last Admin: 02/24/18 20:31 Dose: 50 mg Sodium Chloride (Flush - Normal Saline) 10 ml IVF PRN PRN PRN Reason: Saline Flush Last Admin: 02/24/18 02:18 Dose: 10 ml Tramadol HCl (Ultram) 50 mg PO 0300,0900,1500,2100 [facility] Last Admin: 02/25/18 09:29 Dose: 50 mg Tramadol HCl (Ultram) 50 mg PO Q6H PRN PRN Reason: Breakthrough Pain
[2018-02-25] MEDS ORDERED: Potassium Chloride 20 MEQ TAB PO SCH (12:15)
[2018-02-25] MEDS: Pregabalin 50 MG CAP PO SCH (20:22)
[2018-02-25] MEDS: Digoxin 0.125 MG TAB PO SCH (20:22)
--- NOTE | 2018-02-25 21:26 | CON ---
DATE OF CONSULTATION: 02/25/2018 HISTORY OF PRESENT ILLNESS: Ms. Nagy is a very pleasant 77-year-old female, who fell on a hardwood floor at home and fractured her hip. She was admitted and noted to have pulmonary nodules on chest radiograph that were new. There was a chest film from last year, did not show nodules. I was consulted for preop clearance. I went to see her in the preop holding area and she has been taken to the OR by Anesthesia. As I explained to the Hospitalist, I could not modify her preop risk with a workup of pulmonary nodules. She subsequently has undergone successful repair of her hip. Bone biopsies were undertaken as well as a lymph node biopsy by General Surgery. There was a large inguinal node that was identified on CT. PAST MEDICAL HISTORY: 1. Remarkable for coronary artery disease with a recent bypass surgery. 2. Diabetes. 3. Hypertension. FAMILY HISTORY: Positive for diabetes. Negative for lung disease in early age. SOCIAL HISTORY: She is a nonsmoker and nondrinker. Does not use drugs. MEDICATIONS: Prior to admission, she was on Eliquis, metformin, atorvastatin, Lasix, Lyrica, amlodipine, and aspirin. She was discharged on anticoagulants in September after aortic valve replacement and coronary bypass grafting with postoperative atrial fibrillation. REVIEW OF SYSTEMS: 10 point review otherwise negative. She says she feels good , has minimal discomfort when I evaluated her today. PHYSICAL EXAMINATION: GENERAL; Patient fell and fx hip VITAL SIGNS: She is afebrile, heart rate is 82, respiratory rate is 12, oximetry is 92 on 3 liters, blood pressure 126/62. HEENT: Pupils are equal. Sclerae are anicteric. NECK: Supple. LUNGS: Clear. HEART: Regular rhythm. S1 and S2 are normal. ABDOMEN: Soft. EXTREMITIES: Without clubbing, cyanosis, or edema. She has no pain into her incision site in her right groin and this is bandaged. LABORATORY DATA: Hemoglobin is 7.9, 7.3 yesterday morning. Sodium 138, potassium 3.2, chloride 105, bicarbonate 22, BUN 11, creatinine 0.8. Intake and output is positive 950. IMPRESSION: 1. Status post surgical repair of intertrochanteric hip fracture. 2. Postop atrial fibrillation after aortic valve and coronary bypass grafting. 3. Anticoagulation for that. ADDENDUM: Multiple pulmonary nodules. We will await pathology. There is no indication for any type of bronchoscopy or needle biopsy of her lung lesions. I suspect a lymph node will reveal pathology. I will be happy to follow along with the physicians. This is a 50-consult, greater than 50% of the time was spent on the unit coordinating care. MISHA
--- NOTE | 2018-02-25 23:24 | OP ---
DATE OF PROCEDURE: 02/24/2018 PREOPERATIVE DIAGNOSIS: Widely metastatic cancer involving the lungs. The abdomen, probably the lef t femur, in the inguinal lymph nodes. INDICATIONS: Patient was taken to the operative room at this time for repair of a left proximal femu r fracture. Under the same anesthetic, I plan to remove the enlarged right inguinal lymph node. Thi s is both visible and palpable. OPERATIVE PROCEDURE IN DETAIL: Informed consent was obtained. The patient was taken to the operatin g room. Dr. Carbone performed repair of left proximal femur fracture. He obtained a bone from this site to be sent for specimen. As this was suspected pathologic fracture. The patient was in stable condition as I approached the operation. The right groin was scrubbed with peroxide as it smelled of yeast. The area was then prepped with Ch loraPrep and draped in sterile fashion. Local anesthetic was infiltrated using 0.25% Marcaine with e pinephrine. Transverse incision was created over the palpable lymph node. Careful dissection was ca rried down to the lymph node. It was dissected circumferentially and all investing lymphatics were d ivided between clamps and 2-0 silk ties. The lymph node was passed off the field intact. I then ove rsewed adjacent lymphatics with interrupted sutures of 3-0 Vicryl to hopefully close off any lymphati c leaks. The wound was closed in layers with 3-0 Vicryl and the skin edges approximated with 4-0 Mon ocryl. Dermabond was placed externally. There were no complications. The patient tolerated the pro cedure well and was taken to recovery room in stable condition.
[2018-02-26] MEDS: traMADol HCl 50 MG TAB PO SCH ×4 (03:06→22:17)
[2018-02-26] MEDS: Acetaminophen 500 MG TAB PO SCH ×4 (03:07→22:18)
[2018-02-26] MEDS: HumaLOG 300 UNITS/3 ML VIAL SC PRN ×4 (05:45→22:21)
[2018-02-26 06:19] LABS: #Eosinphils 0.3 thou/uL (0.0-0.7); #Lymphocytes 1.1 thou/uL (1.20-3.40); #Neutrophils 11.8 thou/uL (1.40-6.50); %Basophils 0.1 % (0.0-1.0); %Eosinophils 2.3 % (0.0-10.0); %Lymphocytes 7.7 % (21.0-51.0); %Monocytes 6.8 % (0.0-10.0); %Neutrophils 83.1 % (42.0-75.0); Anisocytosis SLIGHT = 6-15 cells (100X) (0-5/hpf); Elliptocytes SLIGHT = 2-5 cells (100X) (0-1/hpf); Hemoglobin 7.9 g/dL (12.0-16.0); MDiff Complete? YES; Mean Corpuscular HGB CONC 29.9 g/dL (32.0-36.0); Mean Corpuscular Hemoglobin 22.7 pg (27.0-31.0); Mean Corpuscular Volume 75.8 fl (81.0-99.0); Mean Platelet Volume 6.6 fL (7.4-10.4); Microcytosis SLIGHT = 6-15 cells (100X) (0-5/hpf); PLT Morphology Comment Appears Increased; Platelet Count 481 thou/uL (130-400); RBC Distribution Width 17.5 % (11.5-14.5); Red Blood Cell (RBC) Count 3.47 mill/uL (4.20-5.40); White Blood Cell (WBC) Count 14.2 thou/uL (4.8-10.8)
[2018-02-26 06:21] LABS: Anion Gap 6 mmol/L (10-20); BUN (Urea Nitrogen) 12 mg/dL (9.8-20.1); Calc. Creatinine Clearance 72 mL/min (70-130); Calcium 9.8 mg/dL (7.8-10.44); Carbon Dioxide 30 mmol/L (23-31); Chloride 102 mmol/L (98-107); Estimated GFR-MDRD 75; Glucose 190 mg/dL (83-110); Magnesium 1.4 mg/dL (1.6-2.6); Phosphorus 2.6 mg/dL (2.3-4.7); Potassium 3.4 mmol/L (3.5-5.1)
[2018-02-26 06:32] LABS: Sodium 135 mmol/L (136-145)
[2018-02-26] MEDS: Famotidine 20 MG TAB PO SCH (07:43)
[2018-02-26] MEDS: Atorvastatin Calcium 10 MG TAB PO SCH (07:44)
[2018-02-26] MEDS: Carvedilol 6.25 MG TAB PO SCH ×2 (07:44→22:18)
[2018-02-26] MEDS ORDERED: Non-Formulary Item 1 EACH (Levemir Flexpen [Levemir Flexpen] 10 UNITS) SQ SCH (09:00)
[2018-02-26] MEDS: metFORMIN 500 MG TAB PO SCH ×2 (09:28→22:18)
[2018-02-26] MEDS: Enoxaparin Sodium 40 MG/0.4 ML SYRINGE SC SCH (09:28)
[2018-02-26] MEDS: Insulin Glargine 10 UNITS in Pre-Filled Syringe 1 EACH SC SCH ×2 (09:28→22:20)
--- NOTE | 2018-02-26 10:07 | PRG ---
DATE OF SERVICE: 02/26/2018 SUBJECTIVE: Ms. Nagy is postoperative day #2 from repair of left femur fracture and excisional bio psy of right inguinal lymph node. She has diffusely metastatic carcinoma of uncertain origin. Today , she has no specific complaints. She is out of bed, receiving a breathing treatment. She tells me she is tolerating her diet. She walks a couple of times yesterday with physical therapy. PHYSICAL EXAMINATION: VITAL SIGNS: Today, she is afebrile, pulse is 76, blood pressure is elevated at 170/73. LUNGS: Clear to auscultation. CARDIAC: Regular rate and rhythm. ABDOMEN: Obese but soft. Since she is sitting up, I am unable to examine her right groin. LABORATORY STUDIES: Her hemoglobin is stable at 7.9. Her white blood cell count is elevated at 14.2 . Chemistry panel shows minor electrolyte abnormalities. Her glucose levels were persistently eleva kanu. ASSESSMENT AND PLAN: She appears to be making appropriate progress following her surgery. She will continue with physical therapy and pain control as necessary. Further workup of her malignancy and p lacement will be decided this upcoming week.
[2018-02-26] MEDS ORDERED: Potassium Chloride 20 MEQ TAB PO SCH (11:30)
[2018-02-26] MEDS: Magnesium Oxide 400 MG TAB PO SCH ×2 (11:41→22:18)
[2018-02-26] MEDS: Ferrous Sulfate 325 MG TAB PO SCH ×2 (11:42→16:15)
--- NOTE | 2018-02-26 13:06 | PRG ---
DATE OF SERVICE: 02/26/2018 SUBJECTIVE: Ms. Debbie Nagy has no complaints. She denies shortness of breath. OBJECTIVE: VITAL SIGNS: She is afebrile, heart rate 76, respiratory rate 16, oximetry is 92 on 2-1/2 liters. LUNGS: Clear. HEART: Regular rhythm. ABDOMEN: Soft. IMPRESSION: 1. Multiple pulmonary nodules. 2. Lymphadenopathy, status post lymph node resection. 3. Status post hip fracture, possibly pathologic. PLAN: Await pathology. Continue with rehabilitation. She is stable to be discharged. Once her pathology is back, Oncology should be notified and consulted.
--- NOTE | 2018-02-26 13:53 | PDOC.PN ---
- Subjective Encounter Start Date: 02/26/18 Encounter Start Time: 08:00 Subjective: no sob, is working with PT, no pain - Objective MAR Reviewed: Yes Vital Signs & Weight: Vital Signs (12 hours) Temp Pulse Resp BP BP BP Pulse Ox 02/26/18 11:40 97.7 F 82 20 136/61 96 02/26/18 09:38 92 L 02/26/18 09:37 76 16 02/26/18 08:33 98.3 F 80 14 91 L 02/26/18 07:44 170/73 H 02/26/18 07:19 98.3 F 80 14 170/73 H 91 L 02/26/18 03:05 98.1 F 78 14 160/65 H 100 Weight Weight 158 lb 8 oz I&O: 02/25/18 02/26/18 02/27/18 06:59 06:59 06:59 Intake Total 1900 1780 Output Total 950 1475 300 Balance 950 305 -300 Result Diagrams: 02/26/18 05:40 02/26/18 05:40 Additional Labs: Accuchecks 02/26/18 02/26/18 02/25/18 10:52 05:47 20:31 POC Glucose 276 H 197 H 292 H 02/25/18 15:35 POC Glucose 264 H Phys Exam - Physical Examination HEENT: PERRLA, moist MMs Neck: no JVD, supple Respiratory: no wheezing, no rales Cardiovascular: RRR, no significant murmur Gastrointestinal: soft, non-tender, positive bowel sounds Musculoskeletal: no edema, pulses present Neurological: non-focal, moves all 4 limbs Psychiatric: normal affect, A&O x 3 Dx/Plan (1) Fracture of femoral neck, left Code(s): S72.002A - FRACTURE OF UNSP PART OF NECK OF LEFT FEMUR, INIT Status: Acute Qualifiers: Encounter type: initial encounter Fracture type: closed Qualified Code(s) : S72.002A - Fracture of unspecified part of neck of left femur, initial encounter for closed fracture Comment: s/p TF nail 02/24/2018 (2) CAD (coronary artery disease) Code(s): I25.10 - ATHSCL HEART DISEASE OF [place] CORONARY ARTERY W/O ANG PCTRS Status: Acute Qualifiers: Coronary Disease-Associated Artery/Lesion type: bypass graft [place] vs. transplanted heart: [place] heart Associated angina: without angina Qualified Code(s): I25.810 - Atherosclerosis of coronary artery bypass graft(s) without angina pectoris Comment: done in 09/2017 (3) H/O heart valve replacement with bioprosthetic valve Code(s): Z95.3 - PRESENCE OF XENOGENIC HEART VALVE Status: Acute Comment: avr done 09/2017 (4) Multiple lesions of metastatic malignancy Code(s): C79.9 - SECONDARY MALIGNANT NEOPLASM OF UNSPECIFIED SITE Status: Acute Comment: new diagnosis, unknown primary, s/p right inguinal lymph node Bx 02/24/2018 (5) UTI (urinary tract infection) Status: Acute Qualifiers: Urinary tract infection type: acute cystitis Hematuria presence: without hematuria Qualified Code(s): N30.00 - Acute cystitis without hematuria (6) Iron deficiency anemia Code(s): D50.9 - IRON DEFICIENCY ANEMIA, UNSPECIFIED Status: Chronic Comment : with ac blood loss post op, recieved 1 u prbc 02/24/2018 (7) DM type 2 (diabetes mellitus, type 2) Status: Chronic Qualifiers: Diabetes mellitus middle or intermediate school principal insulin use: with middle or intermediate school principal use Diabetes mellitus complication status: with unspecified complications Qualified Code(s) : E11.8 - Type 2 diabetes mellitus with unspecified complications; Z79.4 - salvage determiner (current) use of insulin; Z79.4 - salvage determiner (current) use of insulin; Z79.4 - salvage determiner (current) use of insulin; Z79.4 - jail (current) use of insulin (8) Afib Code(s): I48.91 - UNSPECIFIED ATRIAL FIBRILLATION Status: Chronic Qualifiers: Atrial fibrillation type: paroxysmal Qualified Code(s): I48.0 - Paroxysmal atrial fibrillation (9) Hypoalbuminemia Code(s): E88.09 - [facility] DISORDERS OF PLASMA-PROTEIN METABOLISM, NEC Status: Chronic - Plan may dc pt to inpatient rehab -: histopath pending, to f/u with onc in 1-2 weeks -: hemostable, levaquin x4 days for uti. -: home dose levemir and metformin -: continue coreg, dig, lipitor, lovenox for dvt prophylaxis. * .
[2018-02-26] MEDS: Pregabalin 50 MG CAP PO SCH (22:17)
[2018-02-26] MEDS: Digoxin 0.125 MG TAB PO SCH (22:20)
[2018-02-27] MEDS: Acetaminophen 500 MG TAB PO SCH ×3 (03:49→14:39)
[2018-02-27] MEDS: traMADol HCl 50 MG TAB PO SCH ×3 (03:49→14:40)
[2018-02-27] MEDS: Atorvastatin Calcium 10 MG TAB PO SCH (08:52)
[2018-02-27] MEDS: Famotidine 20 MG TAB PO SCH (08:53)
[2018-02-27] MEDS: Carvedilol 6.25 MG TAB PO SCH (08:56)
[2018-02-27] MEDS: Ferrous Sulfate 325 MG TAB PO SCH ×3 (08:57→16:07)
[2018-02-27] MEDS: Enoxaparin Sodium 40 MG/0.4 ML SYRINGE SC SCH (08:58)
[2018-02-27] MEDS ORDERED: Docusate 100 MG CAP PO SCH (09:00)
[2018-02-27] MEDS ORDERED: Insulin Glargine 15 UNITS in Pre-Filled Syringe 1 EACH SC SCH (09:00)
[2018-02-27] MEDS ORDERED: Multivit, Therapeutic 1 TAB PO SCH (09:00)
[2018-02-27] MEDS ORDERED: Senokot 8.6 MG TAB PO SCH (09:00)
[2018-02-27] MEDS ORDERED: Polyethylene Glycol 3350 17 GM Packet PO SCH (09:00)
[2018-02-27] MEDS: HumaLOG 300 UNITS/3 ML VIAL SC PRN ×2 (11:47→16:03)
--- NOTE | 2018-02-27 15:20 | CON ---
DATE OF CONSULTATION: 02/27/2018 REASON FOR CONSULTATION: Metastatic disease. HISTORY OF PRESENT ILLNESS: Ms. Nagy is a 77-year-old female, who was brought to the [facility] room after a fall. She was noted to have a left femur fracture. She had a chest x-ray, which showed pulmonary nodules. She then underwent a chest, abdomen, and pelvis CT, which showed multiple cavitated bilateral pulmonary nodules with mediastinal and inguinal lymphadenopathy. There were abdo rosy mesenteric masses. There was liver and splenic lesions. She underwent a repair of her left fe mur and had an inguinal lymph node biopsy performed. The patient had a coronary artery bypass graft surgery in September. She was undergoing outpatient cardiac rehabilitation. She admits to hip pain a couple of weeks ago. She did present to the emergency room for evaluation. She was given muscle re laxers and sent home. Chest x-ray performed in September showed no pulmonary nodules. She admits to a 40-pound weight loss over the last 6 months. She attributes that to reflux and stomach issues, sta ermelinda that every time ate she just would have a stomach pain and nausea. She denies any night sweats, fever or pruritus. Denies bleeding. PAST MEDICAL HISTORY: 1. Coronary artery disease. 2. Diabetes. 3. Hypertension. PAST SURGICAL HISTORY: Coronary artery bypass grafting. ALLERGIES: No known drug allergies. HOME MEDICATIONS: 1. Amiodarone 200 mg daily. 2. Aspirin 81 mg daily. 3. Lipitor 10 mg daily. 4. Coreg 6.25 mg b.i.d. 5. Digoxin 125 mcg daily. 6. Colace daily. 7. Pepcid daily. 8. Iron t.i.d. 9. Insulin daily. 10. Metformin 850 mg b.i.d. 11. Lyrica daily. 12. Sulindac 150 mg daily. 13. Tramadol p.r.n. FAMILY HISTORY: No known history of malignancy. SOCIAL HISTORY: Lives with her daughter. No alcohol, tobacco or illicit drug use. REVIEW OF SYSTEMS: Twelve-point review of systems is negative except for noted in HPI. PHYSICAL EXAMINATION: VITAL SIGNS: Temperature is 97.9, pulse is 94, respiratory rate 20, blood pressure is 165/63 and she is 94% on room air. GENERAL: Well-developed, well-nourished female in no acute distress. HEENT: Normocephalic, atraumatic. Pupils equal and reactive to light. NECK: Supple. CARDIOVASCULAR: Regular rate and rhythm. She has a 2/6 murmur. LUNGS: Clear to auscultation. ABDOMEN: Soft, nontender, bowel sounds are positive. There is no hepato or splenomegaly. EXTREMITIES: No clubbing, cyanosis or edema. SKIN: No rash. HEMATOLOGIC: No petechia or purpura. NEUROLOGIC: Nonfocal. PSYCHIATRIC: The patient is alert and oriented and appropriate. PERTINENT LABORATORY AND X-RAYS: Current WBCs are 14.2, hemoglobin is 7.9, hematocrit is 26.3, plate let count is 481,000. She has got 83% neutrophils, 7% lymphocytes. Sodium is 135, potassium is 3.4, chloride is 102, CO2 is 30, BUN is 12, creatinine is 0.75, calcium is 9.8, total bilirubin is 0.3, A ST is 10, ALT is 11, alkaline phosphatase is 107. Troponin is negative. Serum total protein is 6.5, albumin is 2.9, globulin is 3.8. Urine showed 4+ bacteria. Radiology per HPI. ASSESSMENT: 1. Left femur fracture, status post repair. 2. Metastatic disease, path currently pending. DISCUSSION: The patient is ready for rehab and the plan is for her to go within the next day or so. Her path likely not be back until she leaves this facility. She was given our clinic information an d asked to call us to set up an appointment once she is leaving rehabilitation. Interestingly, she h ad a left internal mammary lymph node biopsy with her CABG, flow cytometry was negative in September. She will follow up with us on the outpatient setting to discuss further treatment options. Thank you for the consult.
[2018-02-27 16:01] VITALS: BP 155/59; TEMP 98.7
--- NOTE | 2018-02-27 16:31 | PDOC.PN ---
- Subjective Encounter Start Date: 02/27/18 Encounter Start Time: 10:15 Subjective: is working with PT, no chest pain or sob - Objective MAR Reviewed: Yes Vital Signs & Weight: Vital Signs (12 hours) Temp Pulse Resp BP BP Pulse Ox 02/27/18 15:58 98.7 F 80 18 155/59 H 92 L 02/27/18 14:14 94 20 94 L 02/27/18 12:05 97.9 F 77 16 131/66 92 L 02/27/18 08:56 165/63 H 02/27/18 08:50 98.5 F 73 16 94 L 02/27/18 08:00 98.5 F 73 16 165/63 H 97 Weight Weight 158 lb 8 oz I&O: 02/26/18 02/27/18 02/28/18 06:59 06:59 06:59 Intake Total 1780 1680 Output Total 1475 850 Balance 305 830 Result Diagrams: 02/26/18 05:40 02/26/18 05:40 Additional Labs: Accuchecks 02/27/18 02/27/18 02/27/18 16:04 11:26 05:48 POC Glucose 223 H 223 H 106 02/26/18 02/26/18 20:27 16:40 POC Glucose 239 H 330 H Phys Exam - Physical Examination HEENT: PERRLA, moist MMs Neck: no JVD, supple Respiratory: no wheezing, no rales Cardiovascular: RRR, no significant murmur Gastrointestinal: soft, non-tender, positive bowel sounds Musculoskeletal: no edema, pulses present Neurological: non-focal, moves all 4 limbs Psychiatric: normal affect, A&O x 3 Dx/Plan (1) Fracture of femoral neck, left Code(s): S72.002A - FRACTURE OF UNSP PART OF NECK OF LEFT FEMUR, INIT Status: Acute Qualifiers: Encounter type: initial encounter Fracture type: closed Qualified Code(s) : S72.002A - Fracture of unspecified part of neck of left femur, initial encounter for closed fracture Comment: s/p TF nail 02/24/2018 (2) CAD (coronary artery disease) Code(s): I25.10 - ATHSCL HEART DISEASE OF [place] CORONARY ARTERY W/O ANG PCTRS Status: Chronic Qualifiers: Coronary Disease-Associated Artery/Lesion type: bypass graft [place] vs. transplanted heart: [place] heart Associated angina: without angina Qualified Code(s): I25.810 - Atherosclerosis of coronary artery bypass graft(s) without angina pectoris Comment: done in 09/2017 (3) H/O heart valve replacement with bioprosthetic valve Code(s): Z95.3 - PRESENCE OF XENOGENIC HEART VALVE Status: Chronic Comment: avr done 09/2017 (4) Multiple lesions of metastatic malignancy Code(s): C79.9 - SECONDARY MALIGNANT NEOPLASM OF UNSPECIFIED SITE Status: Acute Comment: new diagnosis, unknown primary, s/p right inguinal lymph node Bx 02/24/2018 (5) UTI (urinary tract infection) Status: Acute Qualifiers: Urinary tract infection type: acute cystitis Hematuria presence: without hematuria Qualified Code(s): N30.00 - Acute cystitis without hematuria (6) Iron deficiency anemia Code(s): D50.9 - IRON DEFICIENCY ANEMIA, UNSPECIFIED Status: Chronic Comment : with ac blood loss post op, recieved 1 u prbc 02/24/2018 (7) DM type 2 (diabetes mellitus, type 2) Status: Chronic Qualifiers: Diabetes mellitus terminologist insulin use: with terminologist use Diabetes mellitus complication status: with unspecified complications Qualified Code(s) : E11.8 - Type 2 diabetes mellitus with unspecified complications; Z79.4 - jail (current) use of insulin; Z79.4 - jail (current) use of insulin; Z79.4 - terminal operations manager (current) use of insulin; Z79.4 - terminal operations manager (current) use of insulin (8) Afib Code(s): I48.91 - UNSPECIFIED ATRIAL FIBRILLATION Status: Chronic Qualifiers: Atrial fibrillation type: paroxysmal Qualified Code(s): I48.0 - Paroxysmal atrial fibrillation (9) Hypoalbuminemia Code(s): E88.09 - [facility] DISORDERS OF PLASMA-PROTEIN METABOLISM, NEC Status: Chronic - Plan hemostable, oral iron, dig, coreg, lipitor, lovenox for dvt prophylaxis -: may dc to rehab if cleared by specialists and onc -: histopath is pending from right lymph node on right plus from bone -: levaquin for uti for another 4 days -: increase metformin to 850mg bid and levemir to 15u bid * .
[2018-02-27] MEDS ORDERED: metFORMIN 850 MG TAB PO SCH (17:00)
--- NOTE | 2018-02-28 04:55 | DIS ---
DATE OF ADMISSION: 02/23/2018 DATE OF DISCHARGE: 02/27/2018 DISCHARGE DISPOSITION: To inpatient rehabilitation. PRIMARY DISCHARGE DIAGNOSES: Multiple metastases with unknown primary. Left femoral neck fracture status post TF nail done on 02/24/2018. SECONDARY DISCHARGE DIAGNOSES: 1. Coronary artery disease with prior coronary artery bypass graft done in 2016. 2. History of bioprosthetic aortic valve replacement done in 09/2017. 3. Urinary tract infection, iron-deficiency anemia with acute blood loss postop. 4. Diabetes mellitus, type 2. 5. Chronic paroxysmal atrial fibrillation. 6. Hypoalbuminemia. PROCEDURES DONE DURING HOSPITALIZATION: Patient had initial chest x-ray done in the ER on arrival, which showed bilateral pulmonary nodules suspicious for metastatic disease. Left hip x-ray done showed intertrochanteric fracture of left hip. CT chest, abdomen, and pelvis with contrast done showed metastatic disease with multiple cavitated bilateral pulmonary nodules, mediastinal and inguinal lymphadenopathy, abdominal mesenteric masses, hepatic and splenic lesions. Patient also had focus of enhancement seen along the posterolateral wall of the urinary bladder on the right L2 vertebral body, heterogeneity, and sclerosis was seen with slight irregularity of the endplate worrisome for osseous metastatic disease. This comminuted intertrochanteric fracture of the left hip seen on the CAT scan, gallbladder was distended with cholelithiasis. Patient has had right inguinal lymph node biopsy done by Dr. Hughes 2017. Patient had placement of TF nail for left intertrochanteric femoral fracture with Dr. Carbone on 02/24/2018. LABORATORY DATA: Labs pending lymph node and bone biopsy. Urine culture grew E. coli and Klebsiella pneumonia sensitive to Levaquin. Discharge H&H 7.9 and 26, platelet count 481, MCV is 75. Discharge BUN and creatinine is 12 and 0.7. First set of cardiac enzymes were negative. Albumin was 2.7, total protein 6.5, globulin 3.8. INPATIENT CONSULTS: Dr. Hughes for general surgery, Dr. Carbone for orthopedic surgery, Ms. Maya Aguilera for oncology. DISCHARGE MEDICATIONS: Amiodarone 200 mg p.o. q.a.m., aspirin 81 mg p.o. daily , Lipitor 10 mg p.o. q.a.m., Coreg 6.25 mg p.o. twice daily, digoxin 0.125 mg p.o. q.p.m., Colace 100 mg p.o. daily, Lovenox 40 mg subcutaneous daily for another 15 days for post left hip surgery DVT prophylaxis, Pepcid 20 mg daily, ferrous sulfate 325 mg p.o. 3 times daily, Levemir 15 units subcutaneous twice daily, DuoNebs q.6 hourly p.r.n., Levaquin 500 mg p.o. daily for another 4 days for urinary tract infection, metformin 850 mg p.o. twice daily, Lyrica 50 mg p.o. at bedtime, Ultram p.r.n. for pain. ALLERGIES: No known drug allergies. DISCHARGE PLAN: Patient is being discharged to inpatient rehabilitation. She needs to follow up with Dr. Owens for Oncology. BRIEF COURSE DURING HOSPITALIZATION: Patient initially got admitted on the , after she was trying to sit down in a recliner when she misjudged the distance and landed on her buttocks. She immediately had left-sided hip pain and was brought to the emergency room. Initial left hip x-ray done revealed intertrochanteric fracture. Also, a preliminary chest x-ray done showed multiple nodules suspicious for metastatic disease. She has had CT chest, abdomen, and pelvis done results of which I have described above, showed multiple metastases. Patient had a large right inguinal lymph node as well. Dr. Carbone was consulted for orthopedic surgery and Dr. Hughes for general surgery. Patient has had her left hip fixed with a TF nail and Dr. Hughes did right inguinal lymph node biopsy at the same setting. Please note her lymph node biopsy and bone biopsy obtained at the surgery, the results are pending at present. Patient needs to follow up with Oncology as advised to follow up on the results of the biopsy. Due to deconditioning and left hip fracture, patient is being discharged to inpatient rehab for further recuperation. She is hemodynamically stable. Her diabetes is uncontrolled and her metformin was increased and so was Levemir dose on the day of discharge. Her overall prognosis is guarded due to multiple metastases seen. The primary is unknown until the biopsy results are back. A total of 35 minutes was spent on discharge plan. Please see a [id number] documentation on [facility] for the day of discharge. [facility]
== END 2018-02-27 17:21 | DRG 481 ==
LOC: ERS 16:48 → SURG A 22:18
PROVIDERS: ADMIT Specialist; ATTEND Specialist
PROC: 0QS704Z Reposition Left Upper Femur with Internal Fixation Device, Open Approach (ICD-10-PCS; principal; 2018-02-24)
DX: M84.459A Pathological fracture, hip, unspecified, initial encounter for fracture (principal); C34.90 Malignant neoplasm of unspecified part of unspecified bronchus or lung; D62 Acute posthemorrhagic anemia; N30.00 Acute cystitis without hematuria; W07.XXXA Fall from chair, initial encounter; Z79.899 Other long term (current) drug therapy; Z79.01 Long term (current) use of anticoagulants; Z79.4 Long term (current) use of insulin; I25.10 Atherosclerotic heart disease of native coronary artery without angina pectoris; E11.9 Type 2 diabetes mellitus without complications; I10 Essential (primary) hypertension; Z95.1 Presence of aortocoronary bypass graft; E11.65 Type 2 diabetes mellitus with hyperglycemia; R59.1 Generalized enlarged lymph nodes; E88.09 Other disorders of plasma-protein metabolism, not elsewhere classified; I48.0 Paroxysmal atrial fibrillation; D50.0 Iron deficiency anemia secondary to blood loss (chronic); Z79.82 Long term (current) use of aspirin
CPT/HCPCS: 36415; 36416; 36430; 71045; 71260; 74177; 76001; 80048; 80053; 81003; 81015; 82553; 82805; 83735; 84100; 84484; 85014; 85018; 85025; 86850; 86900; 86901; 87077; 87086; 87186; 88305; 88331; 88341; 88342; 93005; 93010; 94640; 96374; 96376; C1713; C1769; G0390; G8978-GP-CL; G8979-GP-CI; G8987-GO-CL; G8988-GO-CJ; J0131; J1650; J1885; J1940; J2001; J2270; J2405; J2550; J2704; J3010; J7620; P9016; Q0162

== ENCOUNTER 2018-03-23 12:06 | Day surgery (SDC) | payer MEDICARE, MEDICAID ==
[2018-03-23] MEDS ORDERED: Acetaminophen 500 MG TAB PO SCH (13:00)
[2018-03-23] MEDS ORDERED: diphenhydrAMINE 25 MG CAP PO SCH (13:00)
[2018-03-23] MEDS ORDERED: Sodium Chloride 0.9% 40 ML ONE (13:04)
[2018-03-23 17:32] LABS: Hemoglobin 9.3 g/dL (12.0-16.0)
[2018-03-23 22:00] VITALS: BP 187/82; TEMP 98
== END 2018-03-23 21:15 | disposition home or self-care (01) ==
LOC: ONC/OP 12:06
PROVIDERS: ATTEND Internal Medicine Hematology & Oncology
DX: D64.9 Anemia, unspecified (principal); D69.6 Thrombocytopenia, unspecified
CPT/HCPCS: 36415; 36430; 85014; 85018; 86850; 86900; 86901; A4216; P9016

== ENCOUNTER 2018-03-29 01:20 | Emergency (ER) | payer MEDICARE, OTHER ==
[2018-03-29 02:45] LABS: #Eosinphils 0.2 thou/uL (0.0-0.7); #Lymphocytes 1.1 thou/uL (1.20-3.40); #Monocytes 0.6 thou/uL (0.11-0.59); #Neutrophils 7.7 thou/uL (1.40-6.50); %Basophils 0.3 % (0.0-1.0); %Eosinophils 2.4 % (0.0-10.0); %Lymphocytes 11.5 % (21.0-51.0); %Monocytes 6.5 % (0.0-10.0); %Neutrophils 79.3 % (42.0-75.0); Hemoglobin 10.1 g/dL (12.0-16.0); Mean Corpuscular HGB CONC 31.2 g/dL (32.0-36.0); Mean Corpuscular Hemoglobin 24.8 pg (27.0-31.0); Mean Corpuscular Volume 79.4 fl (81.0-99.0); Mean Platelet Volume 7.5 fL (7.4-10.4); Platelet Count 392 thou/uL (130-400); RBC Distribution Width 18.4 % (11.5-14.5); Red Blood Cell (RBC) Count 4.06 mill/uL (4.20-5.40); White Blood Cell (WBC) Count 9.7 thou/uL (4.8-10.8)
[2018-03-29 03:04] LABS: ALT (SGPT) 16 U/L (8-55); AST (SGOT) 13 U/L (5-34); Albumin 2.6 g/dL (3.4-4.8); Alkaline Phosphatase 92 U/L (40-150); Anion Gap 11 mmol/L (10-20); BUN (Urea Nitrogen) 9 mg/dL (9.8-20.1); Bilirubin, Total 0.4 mg/dL (0.2-1.2); Calc. Creatinine Clearance 0 mL/min (70-130); Calcium 10.9 mg/dL (7.8-10.44); Carbon Dioxide 30 mmol/L (23-31); Chloride 98 mmol/L (98-107); Estimated GFR-MDRD Greater than 90; Globulin 3.5 g/dL (2.4-3.5); Potassium 3.1 mmol/L (3.5-5.1); Protein, Total 6.1 g/dL (6.0-8.3); Sodium 136 mmol/L (136-145)
[2018-03-29 03:07] LABS: Glucose 58 mg/dL (83-110)
[2018-03-29] MEDS ORDERED: Dextrose 50% Abboject 50 ML SYRINGE ONE (03:10)
[2018-03-29] MEDS ORDERED: Potassium Chloride 20 MEQ TAB ONE (04:31)
[2018-03-29 06:34] LABS: Bilirubin Negative (Negative); Blood, Urine Negative (Negative); Clarity CLEAR (Clear); Glucose, Urine (Dipstick) 100 mg/dL (Negative); Leukocyte Trace (Negative); Nitrite Negative (Negative); Protein, Urine (Dipstick) Negative (Neg-Trace); Urobilinogen 0.2 mg/dL (0.2-1.0); pH, Urine 6.5 (5.0-9.0)
[2018-03-29 06:36] LABS: Bacteria/HPF None Seen HPF (None Seen); Hyaline Casts/LPF 0-3 HYALINE CAST LPF (0-3 Hyaline); RBC/HPF 0-3 HPF (0-3); Squamous Epithelial None Seen HPF (0-3); WBC/HPF 0-3 HPF (0-3)
[2018-03-29 07:28] LABS: Digoxin 0.64 ng/mL (0.8-2.0)
[2018-03-29] MEDS ORDERED: Labetalol HCl 100 MG/20 ML VIAL ONE (07:46)
[2018-03-29] MEDS ORDERED: niCARdipine 20MG In NaCl 20 MG/200 ML BAG ONE (07:46)
--- NOTE | 2018-03-29 07:54 | CT ---
CT OF ABDOMEN AND PELVIS: DATE: 03/29/18. COMPARISON: 02/24/18. HISTORY: Abdominal pain, stage IV cervical cancer. TECHNIQUE: Serial axial CT imaging at 5 mm intervals obtained from lung bases through pubic symphysis with IV an d oral contrast. Coronal reformatted imaging obtained. FINDINGS: Multiple lung masses are identified within the imaged lung bases consistent with metastatic disease, as seen on 02/24/18 examination. Midline sternotomy wires are present. Mechanical aortic valve noted . Coronary artery calcifications are seen. Trace bilateral pleural effusions are noted. No free intraperitoneal air is noted. There are hypodense hepatic lesions, including a lesion within the ventral aspect of the left lobe measuring 1.7 cm and 2 posterior right lobe lesions measuring up to 1.8 cm, stable and suspicious for metastatic disease. Nonspecific hypodense splenic lesion seen medially measuring 1.9 cm, which may also signify metastati c disease. Numerous gallstones are present. Adrenal glands appear grossly unremarkable.. Kidneys d emonstrate no hydronephrosis. Nonobstructing subcentimeter mid pole left renal stone noted. There is no evidence for bowel obstruction. There are numerous mesenteric mass lesions, consistent with metastatic disease. This includes a lesi on to the left of the cervix on image 78 measuring 2.3 cm and multiple omental masses, right greater than left. This includes a 3.8 cm lesion anterior to the distal transverse colon in the left upper q uadrant, 3 anterior left-sided mesenteric masses in the mid abdomen measuring up to 4.3 cm, a left lo wer quadrant ventral mesenteric mass measuring 3.3 cm, a midline ventral mesenteric mass measuring 6. 5 cm, and multiple masses along the right paracolic gutter and adjacent to the ascending colon anteri vitaliy, including a mass in the right lower quadrant measuring up to 5.7 cm. There is extensive atherosclerotic calcification of the abdominal aorta and its branches. No significant retroperitoneal lymphadenopathy. Osseous structures demonstrate diffuse osteopenia. Postoperative hardware is present within the prox imal femur on the left. There is mottled density of the L2 vertebral body noted, a stable finding, suspicious for an osseous metastatic lesion. There is mild bilateral inguinal lymphadenopathy, left greater than right, improv ed since the prior examination, suspicious for potential metastatic lymphadenopathy. IMPRESSION: Evidence of widespread metastatic disease including multiple bilateral pulmonary nodules, liver lesio ns, medial splenic lesion, and numerous mesenteric masses as described above. Abnormal appearance of the L2 vertebral body may signify an L2 vertebral body metastatic focus, similar when compared to 09/03. No evidence for bowel obstruction or free intraperitoneal air. POS: GOYOH
[2018-03-29] MEDS ORDERED: ISOVUE-370 76%-LOCM 1 ML ONE (10:32)
== END 2018-03-29 08:50 | disposition home or self-care (01) ==
LOC: ERS 01:20
DX: K59.00 Constipation, unspecified (principal); I25.10 Atherosclerotic heart disease of native coronary artery without angina pectoris; E11.9 Type 2 diabetes mellitus without complications; I10 Essential (primary) hypertension; Z79.899 Other long term (current) drug therapy; Z79.84 Long term (current) use of oral hypoglycemic drugs
CPT/HCPCS: 36415; 36416; 74177; 80053; 80162; 81003; 81015; 83690; 85025; 96361; 96374; 96375; J2270

== ENCOUNTER → 2018-03-30 | Day surgery (SDC) | payer MEDICARE, MEDICAID ==
[2018-03-17 12:03] VITALS: BMI 29.5
[~2018-03-30] MED LIST: Bupivacaine/Epinephrine 0.25% 30 ML VIAL ONE; CEFAZOLIN/Water 2 GM/20 ML SYRINGE ONE; Fentanyl 100 MCG/2 ML VIAL ONE; Ketorolac Tromethamine 30 MG/ML VIAL ONE; Lidocaine 1% (PF) 30 ML VIAL ONE; Lidocaine 1% PF 5 ML VIAL ONE; Midazolam HCl 2 mg/2 ml Vial ONE; PROPOFOL 200 MG/20 ML VIAL ONE
--- NOTE | 2018-03-30 11:31 | RAD ---
CHEST 1 VIEW: Date: 03/30/18 Time: 1025 hours HISTORY: MediPort placement. FINDINGS/IMPRESSION: Comparison made with exam of 02/24/18. Interval placement of a right subclavian Port-A-Cath is seen with tip in the projection of the SVC. N o pneumothorax is identified. There are changes of median sternotomy. The heart size is normal. Bilateral pulmonary nodules consist ent with metastatic disease are again seen. Small effusions may be present. POS: GEORGE
--- NOTE | 2018-03-31 11:37 | OP ---
DATE OF OPERATION: 03/30/2018 PREOPERATIVE DIAGNOSIS: Widely metastatic cancer in chest and abdomen. POSTOPERATIVE DIAGNOSIS: Widely metastatic cancer in chest and abdomen. OPERATION PERFORMED: Placement of low profile power compatible right subclavian MediPort. SURGEON: Harjit Hughes M.D. ANESTHESIA: Total intravenous anesthesia with local using 0.25% Marcaine with epinephrine. INDICATIONS: The patient is a 77-year-old female. 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 She also had a pathol ogic hip fracture. She is taken to the operating room at this time for MediPort placement for chemot herapy administration. DESCRIPTION OF OPERATION: Informed consent was obtained. The patient was taken to the operating damian m where total intravenous anesthesia was obtained with the patient in supine position. Right pericla vicular area was prepped with ChloraPrep and draped in sterile fashion. Local anesthetic was infiltr ated and a large gauge needle was passed under the clavicle in the subclavian vein. Guidewire was pa ssed through the needle and fluoroscopically confirmed to enter the superior vena cava. Additional l ocal anesthetic was infiltrated and transverse incision was created based on needle insertion site. A subcutaneous pocket was dissected inferiorly. Introducer dilator was passed over the guidewire und er fluoroscopic guidance. The guidewire and dilator were removed, and the catheter was passed throug h the introducer. The tip of the catheter was positioned at the atriocaval junction and the catheter was trimmed to the appropriate length and secured to the locking hub of the MediPort. The port was then placed in the subcutaneous pocket where it was secured to the pectoral fascia with 2 interrupted sutures of 3-0 Prolene. The incision was then closed in layers with 3-0 and 4-0 Monocryl. Addition al local anesthetic was infiltrated. The port was cannulated with a Mai needle and it aspirated bl ood freely and was flushed with heparinized saline. Dermabond was placed externally on the skin inci servando. There were no complications. Blood loss was negligible. The patient tolerated the procedure well and was taken to recovery room in stable condition. FINDINGS: I used low profile port placed uneventfully in the right subclavian vein. There were no c omplications and essentially no blood loss. The patient tolerated the procedure well and was taken t o recovery room in stable condition.
== END ==
LOC: SDC 07:13
PROVIDERS: ATTEND Specialist
PROC: 02HV33Z Insertion of Infusion Device into Superior Vena Cava, Percutaneous Approach (ICD-10-PCS; principal; 2018-03-30)
PROC: B5181ZA Fluoroscopy of Superior Vena Cava using Low Osmolar Contrast, Guidance (ICD-10-PCS; 2018-03-30)
DX: C79.89 Secondary malignant neoplasm of other specified sites (principal); C78.7 Secondary malignant neoplasm of liver and intrahepatic bile duct; C80.1 Malignant (primary) neoplasm, unspecified; M84.459A Pathological fracture, hip, unspecified, initial encounter for fracture; Z79.01 Long term (current) use of anticoagulants; Z79.4 Long term (current) use of insulin; Z79.82 Long term (current) use of aspirin; Z79.899 Other long term (current) drug therapy; Z95.2 Presence of prosthetic heart valve
CPT/HCPCS: 36561; 71045; 82962; C1788; 36416; J0131; J1642; J1885; J2001; J2250; J2704; J3010